=== PATIENT | female | born 1985 | race American Indian/Alaskan Native ===

== ENCOUNTER 2017-12-07 13:36 | Emergency (ER) | payer SELFPAY ==
--- NOTE | 2017-12-07 14:45 | Emergency Department Report ---
Chief Complaint: Urogenital-Female Stated Complaint: ABDOMINAL PAIN Time Seen by Provider: 12/07/17 14:39 - HPI History of Present Illness: 32-year-old female presents to the emergency department with a complaint of a two-week history of lower abdominal/pelvic discomfort with some radiation towards the back. She denies any fever, nausea, vomiting, dysuria but does have some vaginal discharge. She has a previous history of bacterial vaginosis. She says that the discharge more recently has become "bloody." When asked if she has taken anything for her discomfort she says "everything." She does not have a primary care physician. Her TABLET TECHNICIAN is Jyothi Toabr but she has not seen them regarding her symptoms. - ROS Review of Systems: Positive for pelvic pain, vaginal discharge, vaginal bleeding, back pain Negative for dysuria, fever, nausea, vomiting - Exam Vital Signs: Vital Signs 12/07/17 13:54 Temperature 99.4 F Pulse Rate 106 H Respiratory 18 Rate Blood Pressure 130/86 O2 Sat by Pulse 100 Oximetry Physical Exam: Heart and lungs sounds are normal and auscultation. Abdominal pain is not reproducible to palpation. She does not appear in any acute distress. MSE screening note: Focused history and physical exam performed. Due to findings the following was ordered: I have ordered a CBC, BMP, urinalysis, urine test, wet prep. Patient will need a pelvic examination. ED Disposition for MSE Condition: Stable Referrals: PRIMARY CARE, [Primary Care Provider] - 3-5 Days
[2017-12-07 15:43] LABS: HCG Qualitative,Urine Negative (Negative)
--- NOTE | 2017-12-07 15:43 | Emergency Department Report ---
ED Female HPI - General Chief complaint: Urogenital-Female Stated complaint: ABDOMINAL PAIN Time Seen by Provider: 12/07/17 14:39 Source: patient Mode of arrival: Ambulatory Limitations: No Limitations - History of Present Illness Initial comments: 32-year-old female past medical history herpes presents with 2 weeks of suprapubic pain and vaginal discharge and pelvic pain radiating to her back. Patient is awake alert and oriented 3. Fully lucid. Denies nausea or vomiting. Does state she has some dysuria. MD Complaint: vaginal discharge, pelvic pain Onset/Timin -: week(s) - Related Data Previous Rx's Medication Instructions Recorded Last Taken Type Doxycycline [Vibramycin CAP] 100 mg PO Q12HR #28 capsule 12/07/17 Unknown Rx Ibuprofen [Motrin] 800 mg PO Q8HR PRN #15 tablet 12/07/17 Unknown Rx Sulfamethoxazole/Trimethoprim 1 each PO BID #6 tablet 12/07/17 Unknown Rx [Bactrim DS TAB] Allergies Allergy/AdvReac Type Severity Reaction Status Date / Time No Known Allergies Allergy Unverified 12/07/17 13:58 ED Review of Systems ROS: Stated complaint: ABDOMINAL PAIN Other details as noted in HPI ED Past Medical Hx - Past Medical History Additional medical history: genital herpes - Surgical History Additional Surgical History: d&c - Social History Smoking Status: Current Every Day Smoker Substance Use Type: Alcohol - Medications Home Medications: Home Medications Medication Instructions Recorded Confirmed Last Taken Type Doxycycline [Vibramycin CAP] 100 mg PO Q12HR #28 capsule 12/07/17 Unknown Rx Ibuprofen [Motrin] 800 mg PO Q8HR PRN #15 tablet 12/07/17 Unknown Rx Sulfamethoxazole/Trimethoprim 1 each PO BID #6 tablet 12/07/17 Unknown Rx [Bactrim DS TAB] ED Physical Exam - General Limitations: No Limitations General appearance: alert, in no apparent distress - Head Head exam: Present: atraumatic, normocephalic - Eye Eye exam: Present: normal appearance - ENT ENT exam: Present: mucous membranes moist - Neck Neck exam: Present: normal inspection - Respiratory Respiratory exam: Present: normal lung sounds bilaterally. Absent: respiratory distress - Cardiovascular Cardiovascular Exam: Present: regular rate, normal rhythm. Absent: systolic murmur, diastolic murmur, rubs, gallop - GI/Abdominal GI/Abdominal exam: Present: soft (abdomen is soft nontender nondistended 4 quadrants, slight suprapubic tenderness), normal bowel sounds - External exam: Present: normal external exam Speculum exam: Present: vaginal discharge (whitish yellowish vaginal discharge) , cervical discharge Bi-manual exam: Present: cervical motion tendernes - Extremities Exam Extremities exam: Present: normal inspection - Back Exam Back exam: Present: normal inspection - Neurological Exam Neurological exam: Present: alert, oriented X3, CN II-XII intact, normal gait - Psychiatric Psychiatric exam: Present: normal affect, normal mood - Skin Skin exam: Present: warm, dry, intact, normal color. Absent: rash ED Course Vital Signs 12/07/17 12/07/17 13:54 16:31 Temperature 99.4 F Pulse Rate 106 H Respiratory 18 16 Rate Blood Pressure 130/86 O2 Sat by Pulse 100 Oximetry ED Medical Decision Making - Lab Data Result diagrams: 12/07/17 15:49 12/07/17 15:49 - Medical Decision Making A/P: Urethritis/cervicitis, UTI, possible pid 1- patient empirically treated with azithromycin and ceftriaxone. Will add 14 day course of doxycyline as pt did have some cmt on exam 2- GC cultures sent, urine culture sent. 3 day course of bactrim to cover for UTI 3- patient given follow-up with primary care/RENTAL REPRESENTATIVE. Advised patient to return to the ED for any fevers chills nausea vomiting purulent vaginal discharge. I advised pt to avoid significant sunlight exposure to mitigate any dermatological side effects of doxy 4- wet prep shows no yeast, trich or bv Critical care attestation.: If time is entered above; I have spent that time in minutes in the direct care of this critically ill patient, excluding procedure time. ED Disposition Clinical Impression: Vaginal discharge, Pelvic pain Disposition: DC-01 TO HOME OR SELFCARE Is pt being admited?: No Does the pt Need Aspirin: No Condition: Stable Instructions: Doxycycline (By mouth), Pelvic Inflammatory Disease (ED), Urinary Tract Infection in Women (ED) Prescriptions: Doxycycline [Vibramycin CAP] 100 mg PO Q12HR #28 capsule Ibuprofen [Motrin] 800 mg PO Q8HR PRN #15 tablet PRN Reason: Pain Sulfamethoxazole/Trimethoprim [Bactrim DS TAB] 1 each PO BID #6 tablet Referrals: [facility] [Provider Group] - 3-5 Days Forms: Work/School Release Form(ED) Time of Disposition: 16:34
[2017-12-07 15:47] LABS: Bacteria,Urine 1+ /HPF (Negative); Bilirubin,Urine NEG (Negative); Blood,Urine LG (Negative); Color,Urine Yellow (Yellow); Mucus,Urine FEW /HPF
[2017-12-07 15:53] LABS: RBC,Urine > 182.0 /HPF (0.0-6.0)
[2017-12-07 15:59] LABS: Basophils % (Auto) 0.2 % (0.0-1.8); Hemoglobin 11.8 gm/dl (10.1-14.3); Lymphocytes % (Auto) 9.5 % (13.4-35.0); Mean Corpuscular HGB Conc 34 % (30-34); Mean Corpuscular Hemoglobin 30 pg (28-32); Mean Corpuscular Volume 89 fl (79-97); Monocytes # (Auto) 0.7 K/mm3 (0.0-0.8); Monocytes % (Auto) 6.9 % (0.0-7.3); Platelet Count 248 K/mm3 (140-440); Red Blood Count 3.92 M/mm3 (3.65-5.03); Red Cell Distribution Width 13.8 % (13.2-15.2)
[2017-12-07] MEDS ORDERED: XYLOCAINE 1% MPF 5 mL INFILTRATI ONE (16:11)
[2017-12-07] MEDS ORDERED: ZITHROMAX PO ONE (16:11)
[2017-12-07] MEDS ORDERED: ROCEPHIN IM ONE (16:11)
[2017-12-07 16:12] LABS: BUN/Creatinine Ratio 13; Blood Urea Nitrogen 8 mg/dL (7-17); Calcium 8.7 mg/dL (8.4-10.2); Hemolysis Index 4
[2017-12-07] MEDS ORDERED: MOTRIN PO ONE (16:28)
[2017-12-07 16:49] VITALS: BP 132/90
== END 2017-12-07 16:50 | disposition home or self-care (01) ==
LOC: ED 13:36
DX: N89.8 Other specified noninflammatory disorders of vagina (principal); R10.2 Pelvic and perineal pain; F17.200 Nicotine dependence, unspecified, uncomplicated
CPT/HCPCS: 36415; 80048; 81001; 81025; 85025; 87210; 87591; 96372; 99284; J0696

== ENCOUNTER 2019-02-08 19:46 | Emergency (ER) | payer OTHER ==
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
[2019-02-09] MEDS ORDERED: IBUPROFEN PO ONE (00:44)
[2019-02-09 00:56] LABS: Bilirubin,Urine Negative (Negative); Blood,Urine Negative (Negative); Color,Urine Yellow (Yellow)
[2019-02-09 00:57] LABS: Protein,Urine <15 mg/dL mg/dL (Negative)
[2019-02-09 00:59] LABS: HCG Qualitative,Urine Negative (Negative)
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
[2019-02-09 03:39] VITALS: BP 120/70
== END 2019-02-09 02:10 | disposition home or self-care (01) ==
LOC: ED 19:46
DX: S00.83XA Contusion of other part of head, initial encounter (principal); F17.200 Nicotine dependence, unspecified, uncomplicated; Z79.899 Other long term (current) drug therapy; Y04.8XXA Assault by other bodily force, initial encounter; Y93.89 Activity, other specified; Y92.89 Other specified places as the place of occurrence of the external cause; Y99.8 Other external cause status
CPT/HCPCS: 70150; 70480; 70486; 81001; 81025

== ENCOUNTER 2019-02-15 20:38 | Inpatient (IN) | payer OTHER ==
--- NOTE | 2019-02-15 21:00 | Emergency Department Report ---
Blank Doc - Documentation Documentation: This is a 33-year-old female that presents with abdominal pain with fever. This initial assessment/diagnostic orders/clinical plan/treatment(s) is/are subject to change based on patient's health status, clinical progression and re- assessment by fellow clinical providers in the ED. Further treatment and workup at subsequent clinical providers discretion. Patient/guardians urged not to elope from the ED as their condition may be serious if not clinically assessed and managed. Initial orders include: 1- Patient sent to MAIN ED for further evaluation and treatment 2- code sepsis initiated 3- labs
[2019-02-15] MEDS ORDERED: TYLENOL PO STA (21:01)
[2019-02-15] MEDS ORDERED: NACL 0.9% 500 ML 500 ML IV ONE (21:01)
[2019-02-15] MEDS ORDERED: TYLENOL ONE (21:09)
[2019-02-15] MEDS ORDERED: NACL 0.9% 1000 ML IV ONE (21:12)
[2019-02-15 21:41] LABS: Hematocrit 34.4 % (30.3-42.9); Hemoglobin 11.7 gm/dl (10.1-14.3); Mean Corpuscular HGB Conc 34 % (30-34); Mean Corpuscular Volume 92 fl (79-97); Platelet Count 258 K/mm3 (140-440); Red Blood Count 3.76 M/mm3 (3.65-5.03); Red Cell Distribution Width 13.9 % (13.2-15.2)
[2019-02-15] MEDS ORDERED: MORPHINE IV ONE (21:47)
[2019-02-15] MEDS ORDERED: ZOFRAN IV ONE (21:47)
[2019-02-15 22:04] LABS: INR 1.19 (0.87-1.13)
[2019-02-15] MEDS ORDERED: MORPHINE ONE (22:21)
[2019-02-15] MEDS ORDERED: ZOFRAN ONE (22:21)
[2019-02-15 22:29] LABS: Basophils % (Manual) 0 % (0.0-1.8); Eosinophils % (Manual) 0 % (0.0-4.3); Total Cells Counted 100
[2019-02-15 22:30] LABS: RBC Morphology Normal
[2019-02-15 22:51] LABS: Mucus,Urine 1+ /HPF
[2019-02-15 22:56] LABS: Color,Urine Brown (Yellow)
[2019-02-15 22:57] LABS: Bilirubin,Urine Negative (Negative); Blood,Urine Trace (Negative)
--- NOTE | 2019-02-15 23:03 | Emergency Department Report ---
ED Abdominal Pain HPI - General Chief Complaint: Abdominal Pain Stated Complaint: ABDOMINAL PAIN ,FEVER Time Seen by Provider: 02/15/19 21:01 Source: patient Mode of arrival: Ambulatory Limitations: No Limitations - History of Present Illness Initial Comments: Ms. Blackwell is a healthy 33-year-old female presents with periumbilical pain since last night. 10/10 dull sore pain. She has subjective fever. Also has nausea vomiting. No previous history of abdominal surgery with the exception of D&C status post miscarriage. She has vaginal discharge. Previous history of gonorrhea infection and bacterial vaginosis. Also previous history of genital herpes. Pain is worse with palpation,. No radiation of the pain. Pain is constant. MD Complaint: abdominal pain -: Gradual, days(s) (1) Location: periumbilical Radiation: none Migration to: no migration Severity: severe Severity scale (0 -10): 7 Quality: aching Consistency: constant Improves With: nothing Worsens With: other (palpation) Associated Symptoms: nausea, vomiting, fever - Related Data Previous Rx's Medication Instructions Recorded Last Taken Type DOXYCYCLINE Hyclate [Vibramycin 100 mg PO Q12HR #28 capsule 12/07/17 Unknown Rx CAP] Ibuprofen [Motrin] 800 mg PO Q8HR PRN #15 tablet 12/07/17 Unknown Rx Sulfamethoxazole/Trimethoprim 1 each PO BID #6 tablet 12/07/17 Unknown Rx [Bactrim DS TAB] Acetaminophen/Codeine [Tylenol 1 tab PO Q6H PRN #12 tab 02/09/19 Unknown Rx /Codeine # 3 tab] Allergies Allergy/AdvReac Type Severity Reaction Status Date / Time No Known Allergies Allergy Unverified 12/07/17 13:58 ED Review of Systems ROS: Stated complaint: ABDOMINAL PAIN ,FEVER Other details as noted in HPI Comment: All other systems reviewed and negative Constitutional: fever Gastrointestinal: abdominal pain, nausea, vomiting Genitourinary: discharge ED Past Medical Hx - Past Medical History Previous Medical History?: Yes Additional medical history: genital herpes - Surgical History Past Surgical History?: Yes Additional Surgical History: d&c - Social History Smoking Status: Never Smoker - Medications Home Medications: Home Medications Medication Instructions Recorded Confirmed Last Taken Type DOXYCYCLINE Hyclate [Vibramycin 100 mg PO Q12HR #28 capsule 12/07/17 Unknown Rx CAP] Ibuprofen [Motrin] 800 mg PO Q8HR PRN #15 tablet 12/07/17 Unknown Rx Sulfamethoxazole/Trimethoprim 1 each PO BID #6 tablet 12/07/17 Unknown Rx [Bactrim DS TAB] Acetaminophen/Codeine [Tylenol 1 tab PO Q6H PRN #12 tab 02/09/19 Unknown Rx /Codeine # 3 tab] ED Physical Exam - General Limitations: No Limitations General appearance: alert, in no apparent distress - Head Head exam: Present: atraumatic, normocephalic - Eye Eye exam: Present: normal appearance - ENT ENT exam: Present: mucous membranes moist - Neck Neck exam: Present: normal inspection, full ROM - Respiratory Respiratory exam: Present: normal lung sounds bilaterally. Absent: respiratory distress, wheezes, rales, rhonchi - Cardiovascular Cardiovascular Exam: Present: normal rhythm, tachycardia. Absent: systolic murmur, diastolic murmur, rubs, gallop - GI/Abdominal GI/Abdominal exam: Present: soft, tenderness (right lower quadrant left lower quadrant tenderness), guarding, normal bowel sounds. Absent: distended, rebound, rigid - External exam: Present: normal external exam. Absent: erythema, swelling Speculum exam: Present: vaginal discharge. Absent: cervical discharge, vaginal bleeding, foreign body, tissue, laceration Bi-manual exam: Absent: cervical motion tendernes, adnexal tenderness, adnexal mass, uterine enlargement, uterine tenderness - Extremities Exam Extremities exam: Present: normal inspection - Back Exam Back exam: Present: normal inspection - Neurological Exam Neurological exam: Present: alert, oriented X3 - Psychiatric Psychiatric exam: Present: normal affect, normal mood - Skin Skin exam: Present: warm, dry, intact, normal color. Absent: rash ED Course Vital Signs 02/15/19 02/15/19 20:56 21:05 Temperature 101.8 F H 101.8 F H Pulse Rate 118 H 116 H Respiratory 20 20 Rate Blood Pressure 109/70 109/70 O2 Sat by Pulse 98 97 Oximetry ED Medical Decision Making - Lab Data Result diagrams: 02/15/19 21:07 02/15/19 21:07 - Radiology Data Radiology results: report reviewed CT abdomen and pelvis: Proximal GI tract normal, terminal ileum normal, small volume pelvic free fluid, or productive organs unremarkable, distal small bowel since the pelvis abnormal fluid-filled appearance generalized mucosal enhancement, impression abnormal appearance of the distal small bowel suggesting enteritis without bowel obstruction - Medical Decision Making Francoise is a 33 yo female who presents with periumbilical pain, fever, leukocytosis, lower abdominal tenderness. She has pain when she walks. Differential Diagnosis Includes acute Appendicitis, PID, Enteritis. I Have High Suspicion of Appendicitis with Clinical Exam. However I Discussed CT findings with our radiologist publications writer. He was unable to visualize the appendix. However, terminal ileum was normal. However Distal Small Bowel Was Markedly Abnormal According to His Report. PID Not Evident on Clinical Exam. I did See Signs of Vaginitis. Admitted to hospital\ist service of Dr. Raphael. I have consulted our general surgeon publications writer Dr. Baugh. Antibiotics cipro flagyl initiated in the ED Critical care attestation.: If time is entered above; I have spent that time in minutes in the direct care of this critically ill patient, excluding procedure time. ED Disposition Clinical Impression: Abdominal pain, SIRS (systemic inflammatory response syndrome), Enteritis Disposition: 09 OP ADMIT IP TO THIS HOSP Is pt being admited?: Yes Does the pt Need Aspirin: No Referrals: MIREYA OLIVO MD [Primary Care Provider] - 3-5 Days
[2019-02-15 23:08] LABS: Alanine Aminotransferase 8 units/L (7-56); Albumin 3.9 g/dL (3.9-5); BUN/Creatinine Ratio 7; Blood Urea Nitrogen 5 mg/dL (7-17); Calcium 8.6 mg/dL (8.4-10.2); Hemolysis Index 2
[2019-02-16] MEDS ORDERED: LEVAQUIN 500MG/100ML 500 MG/100 ML BAG IV ONE ×2 (02:26→03:05)
[2019-02-16] MEDS ORDERED: FLAGYL 500 MG/100 ML 500 MG/100 ML BAG IV ONE ×2 (02:26→03:06)
[2019-02-16] MEDS ORDERED: MORPHINE IV ONE (02:27)
[2019-02-16] MEDS ORDERED: ZOFRAN IV PRN (02:49)
[2019-02-16] MEDS ORDERED: D5/0.45NS 1,000 ML IV SCH (03:00)
[2019-02-16] MEDS ORDERED: D5/0.45NS 1,000 ML IV ONE (03:05)
[2019-02-16] MEDS ORDERED: MORPHINE ONE (03:37)
[2019-02-16] MEDS ORDERED: FLAGYL 500 MG/100 ML 500 MG/100 ML BAG IV SCH ×2 (05:00→06:00)
[2019-02-16] MEDS: ZOSYN/NS 3.375GM/50ML 3.375 GM/50 ML BAG IV SCH ×2 (08:08→10:35)
--- NOTE | 2019-02-16 10:05 | XRay Report ---
CHEST 1 VIEW INDICATION: possible Sepsis. COMPARISON: None FINDINGS: Support devices: None. Heart: Within normal limits. Lungs/Pleura: No acute air space or interstitial disease. Additional findings: None. IMPRESSION: 1. No acute findings. Signer Name: Marshal Martin MD Signed: 02/15/2019 10:40 PM Workstation Name: [id number]
--- NOTE | 2019-02-16 10:05 | History and Physical Report ---
CHIEF COMPLAINT: Abdominal pain. Other complaint includes fever. HISTORY OF PRESENTING ILLNESS: The patient is a 33-year-old female who says she has been having periumbilical abdominal pain since last night. Pain was rated as 10/10, dull in character and associated with fever, nausea and vomiting. There is no history of diarrhea, no history of shortness of breath and the patient was seen in the Emergency Room, evaluated with CAT scan showing some swelling around the appendix but the appendix was not visualized. PAST MEDICAL HISTORY: Pertinent for genital herpes infection, gonorrhea and bacterial vaginosis. PAST SURGICAL HISTORY: Only pertinent for D and C following miscarriage. FAMILY HISTORY: Noncontributory. SOCIAL HISTORY: The patient drinks alcohol, smokes cigarette and does not use illicit drugs. MEDICATIONS: The patient is on ibuprofen 800 mg every 8 hours as needed for pain and Tylenol No. 3 one by mouth every 6 hours as needed for pain. ALLERGIES: There are no known drug allergies. REVIEW OF SYSTEMS: CONSTITUTIONAL: There is fever, but no chills, no diaphoresis. HEENT: There is no headache or sore throat. CARDIOVASCULAR SYSTEM: There is no chest pain or orthopnea. RESPIRATORY SYSTEM: There is no shortness of breath or cough. GASTROINTESTINAL SYSTEM: There is nausea and vomiting and abdominal pain, but no diarrhea, no constipation. NEUROLOGICAL SYSTEM: There is no numbness, no dizziness, no altered mental status. MUSCULOSKELETAL SYSTEM: There is no joint pain or swelling. DERMATOLOGICAL SYSTEM: There is no skin rash or itching. GENITOURINARY SYSTEM: There is no dysuria, hematuria or flank pain. Rest of system review is normal. PHYSICAL EXAMINATION: GENERAL: At the time of exam, the patient was found to be alert, oriented x 3 and not in acute distress. VITAL SIGNS: At the initial time of presentation show temperature of 101.8 degrees Fahrenheit, pulse of 118, respirations 20, blood pressure 109/70, O2 sat of 98% on room air. HEENT: Showed pupils to be equal, round, reactive to light and accommodating. Extraocular muscles are intact. NECK: Neck is supple with no JVD or carotid bruit. CARDIOVASCULAR SYSTEM: Showed normal first and second heart sounds, with no gallops or murmurs. RESPIRATORY SYSTEM: Showed good air entry on both sides of the lungs, with no abnormal breath sounds. GASTROINTESTINAL SYSTEM: Showed abdomen to be full, soft with tenderness in the periumbilical area, was in the infraumbilical area with no guarding and no rigidity and there is no rebound tenderness. There is no organomegaly elicited. Bowel sound is normal. NEUROLOGIC SYSTEM: Showed no focal deficit. MUSCULOSKELETAL SYSTEM: Showed no joint swelling or tenderness. DERMATOLOGICAL SYSTEM: Showed no skin rash. GENITOURINARY SYSTEM: Showed no costovertebral angle tenderness. PERTINENT LABORATORY AND IMAGING STUDIES: The patient had CT of the abdomen and pelvis with contrast, which is yet to be posted, but report from the Emergency Room physician showed that the appendix was not visualized and there was a lot of swelling around the appendix area. LABORATORY RESULTS: The patient has CBC done with elevated white count of 14,600, normal hemoglobin and normal hematocrit with CBC differential showing elevated segmented neutrophil count of 87%, and the patient's chemistry was unremarkable. Coagulation studies came back unremarkable. The patient's urinalysis was unremarkable. DIAGNOSES: 1. Abdominal pain. 2. Sepsis. 3. Vaginitis. PLAN OF CARE: 1. The patient will be admitted to medical/surgical hernandez. 2. The patient will continue surgical consult with the oncall surgeon requested by the Emergency Room physician. 3. The patient will be on IV D5 half normal running at 125 mL an hour, having received boluses of normal saline in the Emergency Room for treatment of sepsis. 4. The patient will be on IV Levaquin 750 mg daily and will be on IV Zosyn 3.375 g q.8 hours. 5. The patient will also be on IV metronidazole 500 mg q.8 hours. 6. The patient will be on Tylenol suppository 650 mg every 4 hours as needed for fever. 7. The patient will remain n.p.o. until seen by the surgeon. 8. The patient's DVT prophylaxis will be through sequential compressive device until evaluated by the surgeon. 9. The patient will be on IV morphine 2 mg every 3 hours as needed for pain and IV Zofran 4 mg every 8 hours for nausea and vomiting. JOB# [id number] OCN/NTS RIKKID
[2019-02-16] MEDS: LEVAQUIN 750MG/150ML 750 MG/150 ML BAG IV SCH ×2 (10:09→11:19)
--- NOTE | 2019-02-16 10:26 | Consultation ---
History of Present Illness Consult date: 02/16/19 Reason for consult: abdominal pain Chief complaint: abdominal pain - History of present illness History of present illness: 33 yo F presented to ER for evaluation of severe sharp, crampy lower abdominal p ain x 2 days. The pain started all of a sudden and gradually worsened. It is localized to the lower abdomen and radiates to b/l lower quadrants. She has had pain like this in the past with ovarian cysts. She states she ate at a restaurant known to her the day the pain started. Her significant other also ate there and is not having any symptoms. She c/o pain at the end of urination. Her last BM was 2-3 days ago and was normal. She is passing flatus. She had one episode of clear emesis yesterday and her nausea has now resolved. No cp, sob. She does have a hx of gonorrhea infection and bacterial vaginosis. Tm 101.8 in ER Past History Past Medical History: other (gonorrhea infection and bacterial vaginosis) Past Surgical History: Other (D&c) Social history: no significant social history Family history: no significant family history Medications and Allergies Allergies Allergy/AdvReac Type Severity Reaction Status Date / Time No Known Allergies Allergy Unverified 12/07/17 13:58 Home Medications Medication Instructions Recorded Confirmed Last Taken Type DOXYCYCLINE Hyclate [Vibramycin 100 mg PO Q12HR #28 capsule 12/07/17 Unknown Rx CAP] Ibuprofen [Motrin] 800 mg PO Q8HR PRN #15 tablet 12/07/17 Unknown Rx Sulfamethoxazole/Trimethoprim 1 each PO BID #6 tablet 12/07/17 Unknown Rx [Bactrim DS TAB] Acetaminophen/Codeine [Tylenol 1 tab PO Q6H PRN #12 tab 02/09/19 Unknown Rx /Codeine # 3 tab] Active Meds: Active Medications Acetaminophen (Tylenol) 650 mg PO Q4H PRN PRN Reason: Fever >101 Dextrose/Sodium Chloride (D5/0.45ns) 1,000 mls @ 125 mls/hr IV DIRECT MARTA Last Admin: 02/16/19 03:17 Dose: 125 mls/hr Documented by: Levofloxacin/Dextrose (Levaquin 750mg/150ml) 750 mg in 150 mls @ 100 mls/hr IV Q24HR MARTA; Protocol Piperacillin Sod/Tazobactam Sod (Zosyn/Ns 3.375gm/50ml) 3.375 gm in 50 mls @ 100 mls/hr IV Q8H MARTA; Protocol Metronidazole (Flagyl 500 Mg/100 Ml) 500 mg in 100 mls @ 100 mls/hr IV Q8H MARTA; Protocol Last Admin: 02/16/19 05:28 Dose: Not Given Documented by: Morphine Sulfate (Morphine) 2 mg IV Q3H PRN PRN Reason: Pain, Moderate (4-6) Ondansetron HCl (Zofran) 4 mg IV Q8H PRN PRN Reason: Nausea And Vomiting Review of Systems All systems: negative (10 PT ROS performed and negative except for that listed in HPI) Exam Vital Signs Temp Pulse Resp BP Pulse Ox 101.8 F H 118 H 20 109/70 98 02/15/19 20:56 02/15/19 20:56 02/15/19 20:56 02/15/19 20:56 02/15/19 20:56 Narrative exam: Gen: AAOx3. NAD ENT: no scleral icterus or conjunctival pallor CV: S1, S2+ Resp; even and unlabored Abd: soft, ND, mild TTP in suprapubic area, LLQ. no r/r/g Ext; no c/c/e Results - Labs 02/15/19 21:07 02/15/19 21:07 Abnormal lab results 02/15/19 02/15/19 02/15/19 Range/Units 21:07 21:07 21:07 WBC 14.6 H (4.5-11.0) K/mm3 Seg Neuts % (Manual) 87.0 H (40.0-70.0) % Lymphocytes % (Manual) 4.0 L (13.4-35.0) % Monocytes % (Manual) 9.0 H (0.0-7.3) % Seg Neutrophils # Man 12.7 H (1.8-7.7) K/mm3 Lymphocytes # (Manual) 0.6 L (1.2-5.4) K/mm3 Monocytes # (Manual) 1.3 H (0.0-0.8) K/mm3 INR (0.87-1.13) BUN 5 L (7-17) mg/dL Glucose 103 H (65-100) mg/dL Lipase 9 L (13-60) units/L U Epithel Cells (Auto) (0-13.0) /HPF 02/15/19 02/15/19 Range/Units 21:07 21:39 WBC (4.5-11.0) K/mm3 Seg Neuts % (Manual) (40.0-70.0) % Lymphocytes % (Manual) (13.4-35.0) % Monocytes % (Manual) (0.0-7.3) % Seg Neutrophils # Man (1.8-7.7) K/mm3 Lymphocytes # (Manual) (1.2-5.4) K/mm3 Monocytes # (Manual) (0.0-0.8) K/mm3 INR 1.19 H (0.87-1.13) BUN (7-17) mg/dL Glucose (65-100) mg/dL Lipase (13-60) units/L U Epithel Cells (Auto) 31.0 H (0-13.0) /HPF Diabetes panel 02/15/19 Range/Units 21:07 Sodium 137 (137-145) mmol/L Potassium 4.3 (3.6-5.0) mmol/L Chloride 99.9 (98-107) mmol/L Carbon Dioxide 24 (22-30) mmol/L BUN 5 L (7-17) mg/dL Creatinine 0.7 (0.7-1.2) mg/dL Glucose 103 H (65-100) mg/dL Calcium 8.6 (8.4-10.2) mg/dL AST 13 (5-40) units/L ALT 8 (7-56) units/L Alkaline Phosphatase 58 (35-129) units/L Total Protein 7.0 (6.3-8.2) g/dL Albumin 3.9 (3.9-5) g/dL Calcium panel 02/15/19 Range/Units 21:07 Calcium 8.6 (8.4-10.2) mg/dL Albumin 3.9 (3.9-5) g/dL Pituitary panel 02/15/19 Range/Units 21:07 Sodium 137 (137-145) mmol/L Potassium 4.3 (3.6-5.0) mmol/L Chloride 99.9 (98-107) mmol/L Carbon Dioxide 24 (22-30) mmol/L BUN 5 L (7-17) mg/dL Creatinine 0.7 (0.7-1.2) mg/dL Glucose 103 H (65-100) mg/dL Calcium 8.6 (8.4-10.2) mg/dL Adrenal panel 02/15/19 Range/Units 21:07 Sodium 137 (137-145) mmol/L Potassium 4.3 (3.6-5.0) mmol/L Chloride 99.9 (98-107) mmol/L Carbon Dioxide 24 (22-30) mmol/L BUN 5 L (7-17) mg/dL Creatinine 0.7 (0.7-1.2) mg/dL Glucose 103 H (65-100) mg/dL Calcium 8.6 (8.4-10.2) mg/dL Total Bilirubin 0.60 (0.1-1.2) mg/dL AST 13 (5-40) units/L ALT 8 (7-56) units/L Alkaline Phosphatase 58 (35-129) units/L Total Protein 7.0 (6.3-8.2) g/dL Albumin 3.9 (3.9-5) g/dL - Imaging CT scan - abdomen: report reviewed, image reviewed CT scan - pelvis: report reviewed, image reviewed Assessment and Plan 33 yo F with 1. abdominal pain 2. bilateral hydrosalpinx 3. SIRS Ct A/P reviewed with Dr. Rasmussen - bowel loops and appendix appear normal. Adnexa significant for bilateral hydrosalpinx Plan: 1. ok to start soft diet 2. prn PO pain control 3. VALVE TESTER consult 4. may need additional imaging such as pelvic ultrasound - will defer to VALVE TESTER No general surgical intervention. D/W Dr. Seymour. Thank you, please call with questions.
[2019-02-16] MEDS: MORPHINE IV PRN ×2 (10:30→15:19)
--- NOTE | 2019-02-16 11:45 | Progress Note ---
Assessment and Plan Assessment and plan: Patient is a 33 yo woman who presented to [facility] ED with severe abd pains, vaginal discharge. She was found to have a temperature of 101.8F with a WBC of 14.6. General surgery was consulted to evaluate the appendix. CT abd/pelvis results not available at the time of this note but was reviewed by the Surgeon, Dr. Baugh, who has asked me to place a consult for fire prevention chief for bilateral hydrosalpinx. Pelvic exam was done in the ED but I do not see any cultures or smears done. Patient does have a history of gonorrhea, BV and genital HSV. UA not indicative of UTI, pCXR negative. -SIRS w/o organ dysfunction but sepsis suspected but no source so far: will order pelvic u/s, IV abx delayed because no peripheral IV established -Hydrosalpinx: consulted hammer heater -Vaginal discharge, ?PID: hammer heater consulted,continue abx, add flagyl -Lost IV access: consult PICC nurse for midline History Interval history: Patient was seen and examined. Follow-up on current diagnosis of FEVERS. No overnight events reported to me. Patient denies any chest pain, shortness breath, nausea/vomiting or severe headaches. Imaging, nursing note, chart, labs and old chart reviewed. Discussed with patient. Hospitalist Physical - Physical exam Narrative exam: Gen: WDWN, NAD, Awake, Alert, Orientated HEENT: NCAT, EOMI, PERRL, OP Clear Neck: supple, no adenopathy, no thyromegaly, no JVD CVS/Heart: RRR, normal S1S2, pulses present bilaterally Chest/Lungs: CTA B, Symmetrical chest expansion, good air entry bilaterally GI/Abdomen: soft, NTND, good bowel sounds, no guarding or rebound /Bladder: +suprapubic tenderness, no CVA or paraspinal tenderness Extermity/Skin: no c/c/e, no obvious rash MSK: FROM x 4 Neuro: CN 2-12 grossly intact, no new focal deficits Psych: calm - Constitutional Vitals: Temp Pulse Resp BP Pulse Ox 100.5 F H 106 H 20 126/69 97 02/16/19 08:36 02/16/19 10:02 02/16/19 10:35 02/16/19 08:36 02/16/19 10:36 Results - Labs CBC & Chem 7: 02/15/19 21:07 02/15/19 21:07 Labs: Laboratory Last Values WBC 14.6 K/mm3 (4.5-11.0) H 02/15/19 21:07 RBC 3.76 M/mm3 (3.65-5.03) 02/15/19 21:07 Hgb 11.7 gm/dl (10.1-14.3) 02/15/19 21:07 Hct 34.4 % (30.3-42.9) 02/15/19 21:07 MCV 92 fl (79-97) 02/15/19 21:07 MCH 31 pg (28-32) 02/15/19 21:07 MCHC 34 % (30-34) 02/15/19 21:07 RDW 13.9 % (13.2-15.2) 02/15/19 21:07 Plt Count 258 K/mm3 (140-440) 02/15/19 21:07 Add Manual Diff Complete 02/15/19 21:07 Total Counted 100 02/15/19 21:07 Seg Neutrophils % Financial Analysis Manager 02/15/19 21:07 Seg Neuts % (Manual) 87.0 % (40.0-70.0) H 02/15/19 21:07 0 % 02/15/19 21:07 4.0 % (13.4-35.0) L 02/15/19 21:07 Reactive Lymphs % (Man) 0 % 02/15/19 21:07 9.0 % (0.0-7.3) H 02/15/19 21:07 0 % (0.0-4.3) 02/15/19 21:07 0 % (0.0-1.8) 02/15/19 21:07 0 % 02/15/19 21:07 0 % 02/15/19 21:07 0 % 02/15/19 21:07 0 % 02/15/19 21:07 Nucleated RBC % Not Reportable 02/15/19 21:07 Seg Neutrophils # Man 12.7 K/mm3 (1.8-7.7) H 02/15/19 21:07 Band Neutrophils # 0.0 K/mm3 02/15/19 21:07 0.6 K/mm3 (1.2-5.4) L 02/15/19 21:07 Abs React Lymphs (Man) 0.0 K/mm3 02/15/19 21:07 1.3 K/mm3 (0.0-0.8) H 02/15/19 21:07 0.0 K/mm3 (0.0-0.4) 02/15/19 21:07 0.0 K/mm3 (0.0-0.1) 02/15/19 21:07 0.0 K/mm3 02/15/19 21:07 0.0 K/mm3 02/15/19 21:07 0.0 K/mm3 02/15/19 21:07 Blast Cells # 0.0 K/mm3 02/15/19 21:07 WBC Morphology Not Reportable 02/15/19 21:07 Hypersegmented Neuts Not Reportable 02/15/19 21:07 Hyposegmented Neuts Not Reportable 02/15/19 21:07 Hypogranular Neuts Not Reportable 02/15/19 21:07 Not Reportable 02/15/19 21:07 Not Reportable 02/15/19 21:07 Not Reportable 02/15/19 21:07 Not Reportable 02/15/19 21:07 Not Reportable 02/15/19 21:07 Not Reportable 02/15/19 21:07 Not Reportable 02/15/19 21:07 Not Reportable 02/15/19 21:07 Plt Clumps, EDTA Not Reportable 02/15/19 21:07 Not Reportable 02/15/19 21:07 Not Reportable 02/15/19 21:07 Not Reportable 02/15/19 21:07 Plt Morphology Comment Not Reportable 02/15/19 21:07 RBC Morphology Normal 02/15/19 21:07 Dimorphic RBCs Not Reportable 02/15/19 21:07 Not Reportable 02/15/19 21:07 Not Reportable 02/15/19 21:07 Not Reportable 02/15/19 21:07 Not Reportable 02/15/19 21:07 Not Reportable 02/15/19 21:07 Not Reportable 02/15/19 21:07 Not Reportable 02/15/19 21:07 Not Reportable 02/15/19 21:07 Not Reportable 02/15/19 21:07 Not Reportable 02/15/19 21:07 Not Reportable 02/15/19 21:07 Not Reportable 02/15/19 21:07 Not Reportable 02/15/19 21:07 Not Reportable 02/15/19 21:07 Not Reportable 02/15/19 21:07 Not Reportable 02/15/19 21:07 Not Reportable 02/15/19 21:07 Not Reportable 02/15/19 21:07 Not Reportable 02/15/19 21:07 Acanthocytes (Spur) Not Reportable 02/15/19 21:07 Rouleaux Not Reportable 02/15/19 21:07 Not Reportable 02/15/19 21:07 Not Reportable 02/15/19 21:07 Not Reportable 02/15/19 21:07 Not Reportable 02/15/19 21:07 Hem Pathologist Commnt No 02/15/19 21:07 PT 14.8 Sec. (12.2-14.9) 02/15/19 21:07 INR 1.19 (0.87-1.13) H 02/15/19 21:07 VBG pH 7.379 (7.320-7.420) 02/15/19 21:07 Sodium 137 mmol/L (137-145) 02/15/19 21:07 Potassium 4.3 mmol/L (3.6-5.0) 02/15/19 21:07 Chloride 99.9 mmol/L (98-107) 02/15/19 21:07 Carbon Dioxide 24 mmol/L (22-30) 02/15/19 21:07 17 mmol/L 02/15/19 21:07 BUN 5 mg/dL (7-17) L 02/15/19 21:07 0.7 mg/dL (0.7-1.2) 02/15/19 21:07 Estimated GFR > 60 ml/min 02/15/19 21:07 7 % 02/15/19 21:07 Glucose 103 mg/dL (65-100) H 02/15/19 21:07 Lactic Acid 0.80 mmol/L (0.7-2.0) 02/16/19 00:24 Calcium 8.6 mg/dL (8.4-10.2) 02/15/19 21:07 0.60 mg/dL (0.1-1.2) 02/15/19 21:07 AST 13 units/L (5-40) 02/15/19 21:07 ALT 8 units/L (7-56) 02/15/19 21:07 58 units/L (35-129) 02/15/19 21:07 7.0 g/dL (6.3-8.2) 02/15/19 21:07 3.9 g/dL (3.9-5) 02/15/19 21:07 1.3 % 02/15/19 21:07 9 units/L (13-60) L 02/15/19 21:07 HCG, Qual Negative (Negative) 02/15/19 21:07 Brown (Yellow) 02/15/19 21:39 Hazy (Clear) 02/15/19 21:39 6.0 (5.0-7.0) 02/15/19 21:39 Ur Specific Ucon 1.015 (1.003-1.030) 02/15/19 21:39 30 mg/dl mg/dL (Negative) 02/15/19 21:39 Negative mg/dL (Negative) 02/15/19 21:39 Negative mg/dL (Negative) 02/15/19 21:39 Trace (Negative) 02/15/19 21:39 Negative (Negative) 02/15/19 21:39 Ur Reducing Substances Not Reportable 02/15/19 21:39 Negative (Negative) 02/15/19 21:39 Not Reportable 02/15/19 21:39 1.0 mg/dL (<2.0) 02/15/19 21:39 Ur Leukocyte Esterase Negative (Negative) 02/15/19 21:39 5.0 /HPF (0.0-6.0) 02/15/19 21:39 17.0 /HPF (0.0-6.0) 02/15/19 21:39 U Epithel Cells (Auto) 31.0 /HPF (0-13.0) H 02/15/19 21:39 2+ /HPF 02/15/19 21:39 1+ /HPF 02/15/19 21:39 1+ /HPF 02/15/19 21:39 Active Medications - Current Medications Current Medications: Generic Name Dose Route Start Last Admin Trade Name Freq PRN Reason Stop Dose Admin Acetaminophen 650 mg 02/16/19 02:51 Tylenol PO Q4H PRN Fever >101 Levofloxacin/Dextrose 750 mg in 150 mls @ 100 mls/hr 02/16/19 10:00 02/16/19 11:19 Levaquin 750mg/150ml IV 100 mls/hr Q24HR MARTA Administration Protocol Piperacillin Sod/Tazobactam Sod 3.375 gm in 50 mls @ 100 mls/hr 02/16/19 08:00 02/16/19 10:35 Zosyn/Ns 3.375gm/50ml IV 100 mls/hr Q8H MARTA Administration Protocol Morphine Sulfate 2 mg 02/16/19 02:49 Morphine IV Q3H PRN Pain, Moderate (4-6) Ondansetron HCl 4 mg 02/16/19 02:49 Zofran IV Q8H PRN Nausea And Vomiting
--- NOTE | 2019-02-16 12:29 | Consultation ---
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 History: chlamydia, gonorrhea, herpes Family/Genetic History: none Social history: single, lives with family (boyfriend) Medications and Allergies Allergies Allergy/AdvReac Type Severity Reaction Status Date / Time No Known Allergies Allergy Unverified 12/07/17 13:58 Home Medications Medication Instructions Recorded Confirmed Last Taken Type DOXYCYCLINE Hyclate [Vibramycin 100 mg PO Q12HR #28 capsule 12/07/17 Unknown Rx CAP] Ibuprofen [Motrin] 800 mg PO Q8HR PRN #15 tablet 12/07/17 Unknown Rx Sulfamethoxazole/Trimethoprim 1 each PO BID #6 tablet 12/07/17 Unknown Rx [Bactrim DS TAB] Acetaminophen/Codeine [Tylenol 1 tab PO Q6H PRN #12 tab 02/09/19 Unknown Rx /Codeine # 3 tab] Active Meds: Active Medications Acetaminophen (Tylenol) 650 mg PO Q4H PRN PRN Reason: Fever >101 Levofloxacin/Dextrose (Levaquin 750mg/150ml) 750 mg in 150 mls @ 100 mls/hr IV Q24HR [facility]; Protocol Last Admin: 02/16/19 11:19 Dose: 100 mls/hr Documented by: Piperacillin Sod/Tazobactam Sod (Zosyn/Ns 3.375gm/50ml) 3.375 gm in 50 mls @ 100 mls/hr IV Q8H [facility]; Protocol Last Admin: 02/16/19 10:35 Dose: 100 mls/hr Documented by: Azithromycin 500 mg/ Sodium (Chloride) 250 mls @ 250 mls/hr IV Q24HR [facility]; Protocol Metronidazole (Flagyl) 500 mg PO Q8HR [facility]; Protocol Morphine Sulfate (Morphine) 2 mg IV Q3H PRN PRN Reason: Pain, Moderate (4-6) Ondansetron HCl (Zofran) 4 mg IV Q8H PRN PRN Reason: Nausea And Vomiting Review of Systems Constitutional: fever, chills Eyes: deferred Ears, nose, mouth and throat: deferred Breasts: deferred Gastrointestinal: abdominal pain, nausea, vomiting Genitourinary: pelvic pain Integumentary: deferred - Vital Signs Vital signs: Vital Signs Temp Pulse Resp BP Pulse Ox 101.8 F H 118 H 20 109/70 98 02/15/19 20:56 02/15/19 20:56 02/15/19 20:56 02/15/19 20:56 02/15/19 20:56 Temp Pulse Resp BP Pulse Ox 100.5 F H 106 H 20 126/69 97 02/16/19 08:36 02/16/19 10:02 02/16/19 10:35 02/16/19 08:36 02/16/19 10:36 - Physical Exam Breasts: Positive: deferred Cardiovascular: Regular rate, Normal S1, Normal S2 Lungs: Positive: Normal air movement Abdomen: Positive: normal appearance, soft, normal bowel sounds. Negative: distention, tenderness Genitourinary (Female): Positive: normal external genitalia, normal perenium Vulva: both: normal Vagina: Positive: normal moisture. Negative: discharge Cervix: Positive: other (CMT predominately right side). Negative: lesion, discharge Uterus: Positive: normal size, normal contour, tender Adnexa: both: normal Anus/Rectum: Positive: normal perianal skin, heme negative. Negative: rectal mass, hemorrhoids Extremities: Positive: normal Deep Tendon Reflex Grade: Normal +2 Results Result Diagrams: 02/15/19 21:07 02/15/19 21:07 Abnormal lab results 02/15/19 02/15/19 02/15/19 Range/Units 21:07 21:07 21:07 WBC 14.6 H (4.5-11.0) K/mm3 Seg Neuts % (Manual) 87.0 H (40.0-70.0) % Lymphocytes % (Manual) 4.0 L (13.4-35.0) % Monocytes % (Manual) 9.0 H (0.0-7.3) % Seg Neutrophils # Man 12.7 H (1.8-7.7) K/mm3 Lymphocytes # (Manual) 0.6 L (1.2-5.4) K/mm3 Monocytes # (Manual) 1.3 H (0.0-0.8) K/mm3 INR (0.87-1.13) BUN 5 L (7-17) mg/dL Glucose 103 H (65-100) mg/dL Lipase 9 L (13-60) units/L U Epithel Cells (Auto) (0-13.0) /HPF 02/15/19 02/15/19 Range/Units 21:07 21:39 WBC (4.5-11.0) K/mm3 Seg Neuts % (Manual) (40.0-70.0) % Lymphocytes % (Manual) (13.4-35.0) % Monocytes % (Manual) (0.0-7.3) % Seg Neutrophils # Man (1.8-7.7) K/mm3 Lymphocytes # (Manual) (1.2-5.4) K/mm3 Monocytes # (Manual) (0.0-0.8) K/mm3 INR 1.19 H (0.87-1.13) BUN (7-17) mg/dL Glucose (65-100) mg/dL Lipase (13-60) units/L U Epithel Cells (Auto) 31.0 H (0-13.0) /HPF All other labs normal. Ultrasound: pending CT scan - pelvis: report reviewed Chest x-ray: report reviewed Assessment and Plan - Patient Problems (1) Hydrosalpinx Onset Date: ~02/16/19 Current Visit: Yes Status: Acute Plan to address problem: Positive CMT on exam. Pelvic US pending. Continue ABX therapy. Will consult w/ Dr. Petty. Thank you for consulting. Will continue to follow. (2) Pelvic inflammatory disease (PID) Onset Date: ~02/16/19 Current Visit: Yes Status: Acute Plan to address problem: Confirmed with CMT. Continue ABX. Will obtain urine culture for G/C. Thank you for the consult. Will f/u as needed. <BELIA PETTY - Last Filed: 02/16/19 15:25> History of Present Illness Reason for consult: other Medications and Allergies Active Meds: Active Medications Acetaminophen (Tylenol) 650 mg PO Q4H PRN PRN Reason: Fever >101 Levofloxacin/Dextrose (Levaquin 750mg/150ml) 750 mg in 150 mls @ 100 mls/hr IV Q24HR [facility]; Protocol Last Admin: 02/16/19 11:19 Dose: 100 mls/hr Documented by: Piperacillin Sod/Tazobactam Sod (Zosyn/Ns 3.375gm/50ml) 3.375 gm in 50 mls @ 100 mls/hr IV Q8H [facility]; Protocol Last Admin: 02/16/19 10:35 Dose: 100 mls/hr Documented by: Azithromycin 500 mg/ Sodium (Chloride) 250 mls @ 250 mls/hr IV Q24HR [facility]; Protocol Metronidazole (Flagyl) 500 mg PO Q8HR [facility]; Protocol Morphine Sulfate (Morphine) 2 mg IV Q3H PRN PRN Reason: Pain, Moderate (4-6) Ondansetron HCl (Zofran) 4 mg IV Q8H PRN PRN Reason: Nausea And Vomiting - Vital Signs Vital signs: Vital Signs Temp Pulse Resp BP Pulse Ox 101.8 F H 118 H 20 109/70 98 02/15/19 20:56 02/15/19 20:56 02/15/19 20:56 02/15/19 20:56 02/15/19 20:56 Temp Pulse Resp BP Pulse Ox 98.1 F 104 H 18 106/60 100 02/16/19 14:22 02/16/19 14:22 02/16/19 14:22 02/16/19 14:22 02/16/19 14:22 Results Result Diagrams: 02/15/19 21:07 02/15/19 21:07 Abnormal lab results 02/15/19 02/15/19 02/15/19 Range/Units 21:07 21:07 21:07 WBC 14.6 H (4.5-11.0) K/mm3 Seg Neuts % (Manual) 87.0 H (40.0-70.0) % Lymphocytes % (Manual) 4.0 L (13.4-35.0) % Monocytes % (Manual) 9.0 H (0.0-7.3) % Seg Neutrophils # Man 12.7 H (1.8-7.7) K/mm3 Lymphocytes # (Manual) 0.6 L (1.2-5.4) K/mm3 Monocytes # (Manual) 1.3 H (0.0-0.8) K/mm3 INR (0.87-1.13) BUN 5 L (7-17) mg/dL Glucose 103 H (65-100) mg/dL Lipase 9 L (13-60) units/L U Epithel Cells (Auto) (0-13.0) /HPF 02/15/19 02/15/19 Range/Units 21:07 21:39 WBC (4.5-11.0) K/mm3 Seg Neuts % (Manual) (40.0-70.0) % Lymphocytes % (Manual) (13.4-35.0) % Monocytes % (Manual) (0.0-7.3) % Seg Neutrophils # Man (1.8-7.7) K/mm3 Lymphocytes # (Manual) (1.2-5.4) K/mm3 Monocytes # (Manual) (0.0-0.8) K/mm3 INR 1.19 H (0.87-1.13) BUN (7-17) mg/dL Glucose (65-100) mg/dL Lipase (13-60) units/L U Epithel Cells (Auto) 31.0 H (0-13.0) /HPF All other labs normal. Assessment and Plan LMP 02/04/2019, presents with pelvic pain similar to what she had last year when she was diagnosed with PID. Pain started 02/14/2019 and has become progressively worse. Pain was associated with one episode of vomiting and she noted a vaginal discharge last pm during the pelvic exam. Still complains of pelvic pain, however she has not asked for pain medication. She states she was told she had ovarian cysts several years ago in [place]. Dr. Rasmussen states (B) hydrosalpinges(no CT scan report available at this time) Recommend ID consultation to guide Antibx regiment for PID. - Patient Problems (1) Pelvic inflammatory disease (PID) Onset Date: ~02/16/19 Current Visit: Yes Status: Acute (2) SIRS (systemic inflammatory response syndrome) Current Visit: Yes Status: Acute
[2019-02-16] MEDS: FLAGYL PO SCH ×2 (15:25→21:19)
[2019-02-16] MEDS: ZITHROMAX 500 MG in NACL 0.9% 250ML 250 ML IV SCH (15:25)
[2019-02-16] MEDS: TYLENOL PO PRN (21:20)
[2019-02-17] MEDS: TYLENOL PO PRN ×2 (04:50→22:45)
[2019-02-17] MEDS: FLAGYL PO SCH (06:34)
[2019-02-17] MEDS ORDERED: ZOSYN/NS 3.375GM/50ML 3.375 GM/50 ML BAG IV SCH (08:00)
[2019-02-17] MEDS: LEVAQUIN 750MG/150ML 750 MG/150 ML BAG IV SCH (09:37)
[2019-02-17] MEDS: ZITHROMAX 500 MG in NACL 0.9% 250ML 250 ML IV SCH (09:46)
--- NOTE | 2019-02-17 11:55 | Consultation ---
History of Present Illness - Reason for Consult Consult date: 02/17/19 PID, abx management Requesting physician: BELIA TAYLOR - History of Present Illness The patient is a 33-year-old female who presented to the emergency room with lower abdominal pain. She has a previous history of PID. Symptoms were going on for about 2 days prior to admission. She also was found to have a fever now with vaginal discharge. She has a previous history of STDs: Gonorrhea and bacterial vaginosis. Per MODEL [employer]KER [employer]AR[employer] eval, she was noted to have cervical motion tenderness. Pelvic ultrasound, transvaginal ultrasound were done and are pending. Preliminary report on abdominal pelvis CT reported bilateral hydrosalpinx. Due to concerns for PID, infectious diseases was consulted for an tibiotic recommendations. Continues to have fevers here. Had 2 loose stools today, none prior to admission. Review of Systems: General: + fevers, no chills or rigors HEENT: no new visual disturbance Respiratory: No cough, sputum, hemoptysis or shortness of breath Cardiovascular: No chest pain, syncope Gastrointestinal: No nausea, vomiting. 2 loose stools today. Genitourinary: No dysuria or hematuria Musculoskeletal: No new or worsening neck pain or back pain Neurologic: No headaches, seizures Hematologic: No easy bruising or bleeding Endocrine: No night sweats or acute weight loss Skin: negative for rash, jaundice Psychiatric: No suicidal or homicidal ideation Past History Past Medical History: other (gonorrhea infection and bacterial vaginosis) Past Surgical History: Other (D&c) Social history: single, lives with family (boyfriend) Family history: no significant family history Medications and Allergies Allergies Allergy/AdvReac Type Severity Reaction Status Date / Time No Known Allergies Allergy Unverified 12/07/17 13:58 Home Medications Medication Instructions Recorded Confirmed Last Taken Type DOXYCYCLINE Hyclate [Vibramycin 100 mg PO Q12HR #28 capsule 12/07/17 02/16/19 Unknown Rx CAP] Ibuprofen [Motrin] 800 mg PO Q8HR PRN #15 tablet 12/07/17 02/16/19 Unknown Rx Sulfamethoxazole/Trimethoprim 1 each PO BID #6 tablet 12/07/17 02/16/19 Unknown Rx [Bactrim DS TAB] Acetaminophen/Codeine [Tylenol 1 tab PO Q6H PRN #12 tab 02/09/19 02/16/19 Unknown Rx /Codeine # 3 tab] Active Meds: Active Medications Acetaminophen (Tylenol) 650 mg PO Q4H PRN PRN Reason: Fever >101 Last Admin: 02/17/19 04:50 Dose: 650 mg Documented by: Levofloxacin/Dextrose (Levaquin 750mg/150ml) 750 mg in 150 mls @ 100 mls/hr IV Q24HR [facility]; Protocol Last Admin: 02/17/19 09:37 Dose: 100 mls/hr Documented by: Azithromycin 500 mg/ Sodium (Chloride) 250 mls @ 250 mls/hr IV Q24HR [facility]; Protocol Last Admin: 02/17/19 09:46 Dose: 250 mls/hr Documented by: Piperacillin Sod/Tazobactam Sod (Zosyn/Ns 3.375gm/50ml) 3.375 gm in 50 mls @ 100 mls/hr IV Q8H [facility]; Protocol Last Admin: 02/17/19 09:36 Dose: 100 mls/hr Documented by: Metronidazole (Flagyl) 500 mg PO Q8HR [facility]; Protocol Last Admin: 02/17/19 06:34 Dose: 500 mg Documented by: Morphine Sulfate (Morphine) 2 mg IV Q3H PRN PRN Reason: Pain, Moderate (4-6) Last Admin: 02/16/19 15:19 Dose: 2 mg Documented by: Ondansetron HCl (Zofran) 4 mg IV Q8H PRN PRN Reason: Nausea And Vomiting Physical Examination - Physical Exam Narrative exam: Physical Exam: Constitutional: Alert, cooperative. No acute distress Head, Ears, Nose: Normocephalic, atraumatic. External ears, nose normal Eyes: Conjunctivae/corneas clear. No icterus. No ptosis. Neck: Supple, no meningeal signs Oral: no thrush Cardiovascular: S1, S2 normal. Respiratory: Good air entry, clear to auscultation bilaterally GI: Soft, tenderness in lower abdomen; bowel sounds normal. No peritoneal signs Musculoskeletal: No pedal edema, no cyanosis. Skin: No rash or abscess Hem/Lymphatic: No palpable cervical or supraclavicular nodes. No lymphangitis Psych: Mood ok. Affect normal Neurological: Awake, alert, oriented. No gross abnormality - Constitutional Vitals: Vital Signs Temp Pulse Resp BP Pulse Ox 98.8 F 88 18 105/57 98 02/17/19 07:41 02/17/19 07:41 02/17/19 07:41 02/17/19 07:41 02/17/19 07:41 Temperature -Last 24 Hours Temperature 98.8 F Temperature 101.2 F Temperature 99.4 F Temperature 102.1 F Temperature 98.1 F Results - Labs CBC & Chem 7: 02/15/19 21:07 02/15/19 21:07 Labs: Abnormal lab results 02/16/19 Range/Units 13:36 POC Glucose 149 H (70-105) - Imaging and Cardiology Chest x-ray: report reviewed, image reviewed (no pneumonia) Assessment and Plan Cultures: 02/15/2019 blood culture: In process A/P: 83-year-old female with previous history of pelvic inflammatory disease, on [place], bacterial vaginosis admitted with: 1) Sepsis secondary to pelvic inflammatory disease with hydrosalpinx: ?pyosalpinx likely given fever and leucocytosis. Follow up imaging studies. 2) Previous h/o STDs: need to check HIV, RPR. Follow up GC NAAT testing. Recs: Follow-up GC NAAT testing Switched abx to Ceftriaxone, Flagyl and Doxycycline Follow up pelvic imaging May need drainage, MODEL [employer] following HIV, RPR (verbal consent obtained from patient) D/W Dr. Seymour. Gerry Tyson MD, FACP [facility] C: [phone] O: [phone] F: [phone]
--- NOTE | 2019-02-17 13:41 | Ultrasound Report ---
ULTRASOUND PELVIS COMPLETE ULTRASOUND TRANSVAGINAL HISTORY: Vaginal discharge, hydrosalpinx TECHNIQUE: Transabdominal and transvaginal ultrasound with color and spectral Doppler imaging. COMPARISON: CT abdomen pelvis with contrast dated 02/15/2019. FINDINGS: The uterus is anteverted. The uterus is normal size and contour measuring 6.7 x 3.4 x 4.3 cm. A 7 x 6 mm myometrial cyst is noted in the posterior wall. No uterine fibroid disease is detected. A 1.2 x 0 .7 cm nabothian cyst with debris is noted in the posterior cervix. A 5 mm nabothian cyst is noted in the anterior cervix. There are complex bilateral cystic adnexal lesions. These complex cystic lesions measure up to 5.0 x 4.0 x 5.2 cm on the right and 3.4 x 6.1 x 7.2 cm on the left. The cystic structures appear tubular on many of the images suggesting this represents hydrosalpinx and not ovarian cysts. Normal ovarian tis chari is difficult to identify. There is moderate debris within these tubular/cystic structures. Small pelvic fluid is noted in the cul-de-sac. IMPRESSION: Complex bilateral cystic/tubular lesions in both adnexa most consistent with bilateral hydrosalpinx o r pyosalpinx. This appears to correlate with the CT findings performed 2 days ago. Signer Name: Greg Rasmussen Jr, MD Signed: 02/17/2019 1:37 PM Workstation Name: [id number]
--- NOTE | 2019-02-17 14:38 | Progress Note ---
Assessment and Plan - Patient Problems (1) Hydrosalpinx Onset Date: ~02/16/19 Current Visit: Yes Status: Acute Plan to address problem: -pyosalpix was also in the ddx of sono today. Will consult IR about CT guided drainage. -cont antibx. Pt has been afebrile since 421 this am -ID has seen pt with thanks and made adjustments to antibx (2) Pelvic inflammatory disease (PID) Onset Date: ~02/16/19 Current Visit: Yes Status: Acute Plan to address problem: -pyosalpix was also in the ddx of sono today. Will consult IR about CT guided drainage. -cont antibx. Pt has been afebrile since 421 this am -ID has seen pt with thanks and made adjustments to antibx Subjective - Subjective Date of service: 02/17/19 Principal diagnosis: HD#2 PID Interval history: Pelvic sono reviewed and pt appears to have bilaterally hydroxalpinx or pyosalpix. I d/w treatment for TOA being conservative management with antibiotics and observation, consultation with interventional radiology for CT guided drainage and operative management with possible removal on one or both tubes and one or both ovaries pending findings during the diagnostic scope. Pt expressed understanding. She states she feels better and that her pain is improved since her admission and she admits to very little pain at this time. States with last episode of PID she did not get admitted to the hospital but was given po anitbx and sent home. Patient reports: appetite normal, voiding normally, pain well controlled, no dizzy ambulation Objective - Vital Signs Latest vital signs: Vital Signs Temp Pulse Pulse Resp BP Pulse Ox 02/17/19 07:41 98.8 F 88 18 105/57 98 02/17/19 04:22 101.2 F H 02/17/19 04:21 105 H 18 125/84 100 02/17/19 04:00 105 H 02/17/19 01:42 104 H 18 97 02/17/19 00:16 99.4 F 02/17/19 00:13 104 H 18 110/68 100 02/16/19 20:00 104 H 02/16/19 19:59 102.1 F H 02/16/19 19:58 115 H 18 116/65 100 02/16/19 15:19 20 Intake and Output 02/16/19 02/17/19 02/17/19 22:59 06:59 14:59 Intake Total 730 280 Balance 730 280 Intake: IV 250 Zithromax 500 mg In NaCl 250 0.9% 250Ml 250 ml @ 250 mls/hr IV Q24HR [facility] Rx#: [id number] Oral 480 280 Other: Total, Intake Amount 480 280 Voiding Method Toilet Toilet # Voids Void 1 - Exam Lungs: Present: Normal air movement Abdomen: Present: other (pt under covers and did not appear to want to be examined so was deferred) - Labs Labs: Abnormal lab results 02/16/19 Range/Units 13:36 POC Glucose 149 H (70-105)
--- NOTE | 2019-02-17 14:45 | Cat Scan Report ---
CT ABDOMEN AND PELVIS WITH CONTRAST HISTORY: Acute nausea and vomiting with generalized abdominal pain. COMPARISON: None. TECHNIQUE: CT images of the abdomen and pelvis were obtained following administration of intravenous contrast. All CT scans at this location are performed using CT dose reduction for ALARA by means of automated exposure control. CONTRAST: 100 ml of intravenous contrast administered. FINDINGS: Lungs/bones: Lung bases are clear. There is no acute osseous abnormality. Mild degenerative changes are present in the lower lumbar spine and the pelvis. Abdomen/pelvis: The liver, mildly distended gallbladder, spleen, pancreas, adrenals, kidneys, and pr oximal GI tract show no acute abnormality. Urinary bladder and reproductive organs are unremarkable. There is small volume pelvic free fluid. Th ere is colonic diverticulosis with no acute inflammatory change identified. The distal small bowel which extends into the pelvis is abnormal with fluid-filled appearance and gen eralized mucosal enhancement. No bowel obstruction identified. IMPRESSION: 1. Abnormal appearance of the distal small bowel suggesting enteritis. No bowel obstruction. Signer Name: Marshal Martin MD Signed: 02/16/2019 12:35 AM Workstation Name: [id number]
--- NOTE | 2019-02-17 15:35 | Event Note ---
Date: 02/17/19 Attempted to see patient today. Patient taking shower at time of visit. Her CT scans and ultrasound were reviewed. Patient clinically has pyosalpinx. We will tentatively schedule the patient for CT-guided aspiration versus drainage tomorrow.
[2019-02-17] MEDS: ROCEPHIN/NS 2 GM/100 ML 2 GM/100 ML BAG IV SCH (17:21)
[2019-02-17] MEDS: FLAGYL 500 MG/100 ML 500 MG/100 ML BAG IV SCH ×2 (17:22→22:46)
[2019-02-17] MEDS: DOXYCYCLINE HYCLATE 100 MG in NACL 0.9% 250ML 250 ML IV SCH ×2 (17:22→22:45)
--- NOTE | 2019-02-17 22:53 | Progress Note ---
Assessment and Plan Assessment and plan: Patient is a 33 yo woman who presented to [facility] ED with severe abd pains, vaginal discharge. She was found to have a temperature of 101.8F with a WBC of 14.6. General surgery was consulted to evaluate the appendix. CT abd/pelvis results not available at the time of this note but was reviewed by the Surgeon, Dr. Baugh, who has asked me to place a consult for powder room attendant for bilateral hydrosalpinx. Pelvic exam was done in the ED but I do not see any cultures or smears done. Patient does have a history of gonorrhea, BV and genital HSV. UA not indicative of UTI, pCXR negative. -Suspected sepsis due to PID with suspected abscess: CT drainage tomorrow, ID following, powder room attendant following -Hydrosalpinx: consulted impregnator helper -Vaginal discharge, ?PID: impregnator helper consulted,continue abx, add flagyl -Lost IV access: consult PICC nurse for midline History Interval history: Patient was seen and examined. Follow-up on current diagnosis of FEVERS. No overnight events reported to me. Patient denies any chest pain, shortness breath, nausea/vomiting or severe headaches. Imaging, nursing note, chart, labs and old chart reviewed. Discussed with patient. Hospitalist Physical - Physical exam Narrative exam: Gen: WDWN, NAD, Awake, Alert, Orientated HEENT: NCAT, EOMI, PERRL, OP Clear Neck: supple, no adenopathy, no thyromegaly, no JVD CVS/Heart: RRR, normal S1S2, pulses present bilaterally Chest/Lungs: CTA B, Symmetrical chest expansion, good air entry bilaterally GI/Abdomen: soft, NTND, good bowel sounds, no guarding or rebound /Bladder: +suprapubic tenderness, no CVA or paraspinal tenderness Extermity/Skin: no c/c/e, no obvious rash MSK: FROM x 4 Neuro: CN 2-12 grossly intact, no new focal deficits Psych: calm - Constitutional Vitals: Temp Pulse Resp BP Pulse Ox 102.9 F H 114 H 13 132/80 98 02/17/19 19:38 02/17/19 19:38 02/17/19 19:38 02/17/19 19:38 02/17/19 19:38 Results - Labs CBC & Chem 7: 02/15/19 21:07 08/12/19 21:07 Labs: Laboratory Last Values WBC 14.6 K/mm3 (4.5-11.0) H 02/15/19 21:07 RBC 3.76 M/mm3 (3.65-5.03) 02/15/19 21:07 Hgb 11.7 gm/dl (10.1-14.3) 02/15/19 21:07 Hct 34.4 % (30.3-42.9) 02/15/19 21:07 MCV 92 fl (79-97) 02/15/19 21:07 MCH 31 pg (28-32) 02/15/19 21:07 MCHC 34 % (30-34) 02/15/19 21:07 RDW 13.9 % (13.2-15.2) 02/15/19 21:07 Plt Count 258 K/mm3 (140-440) 02/15/19 21:07 Add Manual Diff Complete 02/15/19 21:07 Total Counted 100 02/15/19 21:07 Seg Neutrophils % Solar Manager 02/15/19 21:07 Seg Neuts % (Manual) 87.0 % (40.0-70.0) H 02/15/19 21:07 0 % 02/15/19 21:07 4.0 % (13.4-35.0) L 02/15/19 21:07 Reactive Lymphs % (Man) 0 % 02/15/19 21:07 9.0 % (0.0-7.3) H 02/15/19 21:07 0 % (0.0-4.3) 02/15/19 21:07 0 % (0.0-1.8) 02/15/19 21:07 0 % 02/15/19 21:07 0 % 02/15/19 21:07 0 % 02/15/19 21:07 0 % 02/15/19 21:07 Nucleated RBC % Not Reportable 02/15/19 21:07 Seg Neutrophils # Man 12.7 K/mm3 (1.8-7.7) H 02/15/19 21:07 Band Neutrophils # 0.0 K/mm3 02/15/19 21:07 0.6 K/mm3 (1.2-5.4) L 02/15/19 21:07 Abs React Lymphs (Man) 0.0 K/mm3 02/15/19 21:07 1.3 K/mm3 (0.0-0.8) H 02/15/19 21:07 0.0 K/mm3 (0.0-0.4) 02/15/19 21:07 0.0 K/mm3 (0.0-0.1) 02/15/19 21:07 0.0 K/mm3 02/15/19 21:07 0.0 K/mm3 02/15/19 21:07 0.0 K/mm3 02/15/19 21:07 Blast Cells # 0.0 K/mm3 02/15/19 21:07 WBC Morphology Not Reportable 02/15/19 21:07 Hypersegmented Neuts Not Reportable 02/15/19 21:07 Hyposegmented Neuts Not Reportable 02/15/19 21:07 Hypogranular Neuts Not Reportable 02/15/19 21:07 Not Reportable 02/15/19 21:07 Not Reportable 02/15/19 21:07 Not Reportable 02/15/19 21:07 Not Reportable 02/15/19 21:07 Not Reportable 02/15/19 21:07 Not Reportable 02/15/19 21:07 Not Reportable 02/15/19 21:07 Not Reportable 02/15/19 21:07 Plt Clumps, EDTA Not Reportable 02/15/19 21:07 Not Reportable 02/15/19 21:07 Not Reportable 02/15/19 21:07 Not Reportable 02/15/19 21:07 Plt Morphology Comment Not Reportable 02/15/19 21:07 RBC Morphology Normal 02/15/19 21:07 Dimorphic RBCs Not Reportable 02/15/19 21:07 Not Reportable 02/15/19 21:07 Not Reportable 02/15/19 21:07 Not Reportable 02/15/19 21:07 Not Reportable 02/15/19 21:07 Not Reportable 02/15/19 21:07 Not Reportable 02/15/19 21:07 Not Reportable 02/15/19 21:07 Not Reportable 02/15/19 21:07 Not Reportable 02/15/19 21:07 Not Reportable 02/15/19 21:07 Not Reportable 02/15/19 21:07 Not Reportable 02/15/19 21:07 Not Reportable 02/15/19 21:07 Not Reportable 02/15/19 21:07 Not Reportable 02/15/19 21:07 Not Reportable 02/15/19 21:07 Not Reportable 02/15/19 21:07 Not Reportable 02/15/19 21:07 Not Reportable 02/15/19 21:07 Acanthocytes (Spur) Not Reportable 02/15/19 21:07 Rouleaux Not Reportable 02/15/19 21:07 Not Reportable 02/15/19 21:07 Not Reportable 02/15/19 21:07 Not Reportable 02/15/19 21:07 Not Reportable 02/15/19 21:07 Hem Pathologist Commnt No 02/15/19 21:07 PT 14.8 Sec. (12.2-14.9) 02/15/19 21:07 INR 1.19 (0.87-1.13) H 02/15/19 21:07 VBG pH 7.379 (7.320-7.420) 02/15/19 21:07 Sodium 137 mmol/L (137-145) 02/15/19 21:07 Potassium 4.3 mmol/L (3.6-5.0) 02/15/19 21:07 Chloride 99.9 mmol/L (98-107) 02/15/19 21:07 Carbon Dioxide 24 mmol/L (22-30) 02/15/19 21:07 17 mmol/L 02/15/19 21:07 BUN 5 mg/dL (7-17) L 02/15/19 21:07 0.7 mg/dL (0.7-1.2) 02/15/19 21:07 Estimated GFR > 60 ml/min 02/15/19 21:07 7 % 02/15/19 21:07 Glucose 103 mg/dL (65-100) H 02/15/19 21:07 POC Glucose 149 (70-105) H 02/16/19 13:36 Lactic Acid 0.80 mmol/L (0.7-2.0) 02/16/19 00:24 Calcium 8.6 mg/dL (8.4-10.2) 02/15/19 21:07 0.60 mg/dL (0.1-1.2) 02/15/19 21:07 AST 13 units/L (5-40) 02/15/19 21:07 ALT 8 units/L (7-56) 02/15/19 21:07 58 units/L (35-129) 02/15/19 21:07 7.0 g/dL (6.3-8.2) 02/15/19 21:07 3.9 g/dL (3.9-5) 02/15/19 21:07 1.3 % 02/15/19 21:07 9 units/L (13-60) L 02/15/19 21:07 HCG, Qual Negative (Negative) 02/15/19 21:07 Brown (Yellow) 02/15/19 21:39 Hazy (Clear) 02/15/19 21:39 6.0 (5.0-7.0) 02/15/19 21:39 Ur Specific [place] 1.015 (1.003-1.030) 02/15/19 21:39 30 mg/dl mg/dL (Negative) 02/15/19 21:39 Negative mg/dL (Negative) 02/15/19 21:39 Negative mg/dL (Negative) 02/15/19 21:39 Trace (Negative) 02/15/19 21:39 Negative (Negative) 02/15/19 21:39 Ur Reducing Substances Not Reportable 02/15/19 21:39 Negative (Negative) 02/15/19 21:39 Not Reportable 02/15/19 21:39 1.0 mg/dL (<2.0) 02/15/19 21:39 Ur Leukocyte Esterase Negative (Negative) 02/15/19 21:39 5.0 /HPF (0.0-6.0) 02/15/19 21:39 17.0 /HPF (0.0-6.0) 02/15/19 21:39 U Epithel Cells (Auto) 31.0 /HPF (0-13.0) H 02/15/19 21:39 2+ /HPF 02/15/19 21:39 1+ /HPF 02/15/19 21:39 1+ /HPF 02/15/19 21:39 HIV 1&2 Antibody Rapid Non react (Non React) 02/17/19 14:57 Non react (Non React) 02/17/19 14:57 Active Medications - Current Medications Current Medications: Generic Name Dose Route Start Last Admin Trade Name Freq PRN Reason Stop Dose Admin Acetaminophen 650 mg 02/16/19 02:51 02/17/19 22:45 Tylenol PO 650 mg Q4H PRN Administration Fever >101 Doxycycline Hyclate 100 mg/ 250 mls @ 250 mls/hr 02/17/19 12:30 02/17/19 17:22 Sodium Chloride IV 250 mls/hr Q12HR MARTA Administration Protocol Ceftriaxone Sodium 2 gm in 100 mls @ 200 mls/hr 02/17/19 13:00 02/17/19 17:21 Rocephin/Ns 2 Gm/100 Ml IV 200 mls/hr Q24HR MARTA Administration Protocol Metronidazole 500 mg in 100 mls @ 100 mls/hr 02/17/19 14:00 02/17/19 22:46 Flagyl 500 Mg/100 Ml IV 100 mls/hr Q8HR MARTA Administration Protocol Morphine Sulfate 2 mg 02/16/19 02:49 02/16/19 15:19 Morphine IV 2 mg Q3H PRN Administration Pain, Moderate (4-6) Ondansetron HCl 4 mg 02/16/19 02:49 Zofran IV Q8H PRN Nausea And Vomiting
[2019-02-18] MEDS: MORPHINE IV PRN ×3 (00:56→22:02)
[2019-02-18 03:45] LABS: Hematocrit 33.7 % (30.3-42.9); Hemoglobin 11.3 gm/dl (10.1-14.3); Mean Corpuscular HGB Conc 34 % (30-34); Mean Corpuscular Volume 92 fl (79-97); Platelet Count 257 K/mm3 (140-440); Red Blood Count 3.66 M/mm3 (3.65-5.03); Red Cell Distribution Width 13.4 % (13.2-15.2)
[2019-02-18 04:10] LABS: BUN/Creatinine Ratio 3; Blood Urea Nitrogen 2 mg/dL (7-17); Calcium 8.1 mg/dL (8.4-10.2); Hemolysis Index 8
[2019-02-18] MEDS: FLAGYL 500 MG/100 ML 500 MG/100 ML BAG IV SCH ×3 (06:51→22:47)
--- NOTE | 2019-02-18 08:29 | Progress Note ---
Assessment and Plan - Patient Problems (1) Pelvic inflammatory disease (PID) Onset Date: ~02/16/19 Current Visit: Yes Status: Acute Plan to address problem: Currently on Flagyl Day 3, Doxcycline Day 2, and Rocephin Day 2. G/C cultures pending. (2) SIRS (systemic inflammatory response syndrome) Current Visit: Yes Status: Acute (3) Pyosalpinx Current Visit: Yes Status: Acute Plan to address problem: Pt scheduled for CT guided aspiration vs drainage today. Procedure discussed w/ patient. Dr. Solorio to review consent. Will f/u after procedure. Subjective Date of service: 02/18/19 Principal diagnosis: HD#3 PID possible pyosalpinx Interval history: Pt reports abd pain at this time and request medication. Reports vaginal spotting. Denies heavy bleeding or cramping. Objective - Exam Narrative Exam: Resting in bed w/ visitor at bedside. No apparent distress noted. Afebrile since 1900. - Constitutional Vitals: Vital Signs - 12hr 02/17/19 02/18/19 02/18/19 22:00 00:37 03:25 Temperature 99.4 F 100.2 F H Pulse Rate 93 H 93 H Pulse Rate [ 114 H From Monitor] Respiratory 18 18 16 Rate Blood Pressure 117/79 110/74 Blood Pressure [Right] O2 Sat by Pulse 98 99 100 Oximetry 02/18/19 02/18/19 03:31 04:00 Temperature 98.0 F 98.8 F Pulse Rate 69 105 H Pulse Rate [ From Monitor] Respiratory 16 16 Rate Blood Pressure 181/97 Blood Pressure 107/57 [Right] O2 Sat by Pulse 97 99 Oximetry General appearance: Present: no acute distress - Labs CBC & Chem 7: 02/18/19 03:18 02/18/19 03:18 Labs: Abnormal lab results 02/18/19 Range/Units 03:18 Sodium 136 L (137-145) mmol/L Potassium 3.5 L (3.6-5.0) mmol/L BUN 2 L (7-17) mg/dL Creatinine 0.6 L (0.7-1.2) mg/dL Glucose 114 H (65-100) mg/dL Calcium 8.1 L (8.4-10.2) mg/dL Medications & Allergies - Medications Allergies/Adverse Reactions: Allergies No Known Allergies Allergy (Unverified 12/07/17 13:58) Home Medications: Home Medications Medication Instructions Recorded Confirmed Last Taken Type DOXYCYCLINE Hyclate [Vibramycin 100 mg PO Q12HR #28 capsule 12/07/17 02/16/19 Unknown Rx CAP] Ibuprofen [Motrin] 800 mg PO Q8HR PRN #15 tablet 12/07/17 02/16/19 Unknown Rx Sulfamethoxazole/Trimethoprim 1 each PO BID #6 tablet 12/07/17 02/16/19 Unknown Rx [Bactrim DS TAB] Acetaminophen/Codeine [Tylenol 1 tab PO Q6H PRN #12 tab 02/09/19 02/16/19 Unknown Rx /Codeine # 3 tab] Active Medications: Generic Name Dose Route Start Last Admin Trade Name Jeremyq PRN Reason Stop Dose Admin Acetaminophen 650 mg 02/16/19 02:51 02/17/19 22:45 Tylenol PO 650 mg Q4H PRN Administration Fever >101 Doxycycline Hyclate 100 mg/ 250 mls @ 250 mls/hr 02/17/19 12:30 02/17/19 22:45 Sodium Chloride IV Not Given Q12HR MARTA Protocol Ceftriaxone Sodium 2 gm in 100 mls @ 200 mls/hr 02/17/19 13:00 02/17/19 17:21 Rocephin/Ns 2 Gm/100 Ml IV 200 mls/hr Q24HR MARTA Administration Protocol Metronidazole 500 mg in 100 mls @ 100 mls/hr 02/17/19 14:00 02/18/19 06:51 Flagyl 500 Mg/100 Ml IV 100 mls/hr Q8HR MARTA Administration Protocol Morphine Sulfate 2 mg 02/16/19 02:49 02/18/19 00:56 Morphine IV 2 mg Q3H PRN Administration Pain, Moderate (4-6) Ondansetron HCl 4 mg 02/16/19 02:49 Zofran IV Q8H PRN Nausea And Vomiting
--- NOTE | 2019-02-18 09:47 | Progress Note ---
Assessment and Plan Cultures: 02/15/2019 blood culture:no growth 02/15/2019 Urine: no growth A/P: 83-year-old female with previous history of pelvic inflammatory disease, on [place], bacterial vaginosis admitted with: 1) Sepsis secondary to pelvic inflammatory disease with hydrosalpinx: ?pyosalpinx likely given fever and leucocytosis. Transvaginal US shows complex bilateral cystic/tubular lesions in both adnexa most consistent with bilateral hydrosalpinx or pyosalpinx. CT guided aspiration of 7ml of fluid from left fallopian tube today. Appreciate sending specimen to the lab for cultures. 2) Previous h/o STDs: HIV nonreactive. RPR non reactive. Follow-up GC NAAT testing. Recs: Follow-up GC NAAT testing Continue Ceftriaxone 2 gms IV every 24 hours, D2 Continue Flagyl 500mg IV every 8 hours, D2 Doxycycline 100 MG IV every 12 hours, D2 Follow up OR culture [facility] M: [id number] O:[phone] Subjective Date of service: 02/18/19 Principal diagnosis: HD#3 PID possible pyosalpinx Interval history: Patient seen and examined. Reports generalized weakness. No acute pain. Low grade fever. Objective - Exam Narrative Exam: Constitutional: Alert, cooperative. No acute distress Head, Ears, Nose: Normocephalic, atraumatic. External ears, nose normal Eyes: Conjunctivae/corneas clear. No icterus. No ptosis. Neck: Supple, no meningeal signs Oral: no thrush Cardiovascular: S1, S2 normal. Respiratory: Good air entry, clear to auscultation bilaterally GI: Soft, tenderness in lower abdomen; bowel sounds normal. No peritoneal signs Musculoskeletal: No pedal edema, no cyanosis. Skin: No rash or abscess Hem/Lymphatic: No palpable cervical or supraclavicular nodes. No lymphangitis Psych: Mood ok. Affect normal Neurological: Awake, alert, oriented. No gross abnormality - Constitutional Vitals: Vital Signs Temp Pulse Resp BP Pulse Ox 98.9 F 92 H 16 117/82 97 02/18/19 09:03 02/18/19 09:03 02/18/19 09:03 02/18/19 09:03 02/18/19 09:03 Temperature -Last 24 Hours Temperature 98.9 F Temperature 98.8 F Temperature 98.0 F Temperature 100.2 F Temperature 99.4 F Temperature 102.9 F Temperature 99.8 F Temperature 98.7 F - Labs CBC & Chem 7: 02/18/19 03:18 02/18/19 03:18 Labs: Abnormal lab results 02/18/19 Range/Units 03:18 Sodium 136 L (137-145) mmol/L Potassium 3.5 L (3.6-5.0) mmol/L BUN 2 L (7-17) mg/dL Creatinine 0.6 L (0.7-1.2) mg/dL Glucose 114 H (65-100) mg/dL Calcium 8.1 L (8.4-10.2) mg/dL
[2019-02-18] MEDS ORDERED: VERSED IV ONE ×2 (10:20→11:00)
[2019-02-18] MEDS ORDERED: SUBLIMAZE ONE (10:20)
--- NOTE | 2019-02-18 10:54 | Post Operative Note ---
Date of procedure: 02/18/19 Pre-op diagnosis: Bilateral hydrosalpinx/pyosalpinx Post-op diagnosis: same Findings: 7 mL of serosanginous fluid removed from the left fallopian tube Right fallopian tube not amenable to percutaneous aspiration or drainage Procedure: CT guided aspiration of the left fallopian tube with fluid sent for culture Anesthesia: local (w/ conscious sedation) Surgeon: PEMA MARTINEZ Estimated blood loss: minimal Condition: stable Disposition: floor
[2019-02-18] MEDS ORDERED: SUBLIMAZE IV ONE (11:00)
[2019-02-18] MEDS: ROCEPHIN/NS 2 GM/100 ML 2 GM/100 ML BAG IV SCH (12:13)
[2019-02-18] MEDS: DOXYCYCLINE HYCLATE 100 MG in NACL 0.9% 250ML 250 ML IV SCH ×2 (14:36→21:32)
--- NOTE | 2019-02-18 17:04 | Cat Scan Report ---
EXAM: CT guided left fallopian tube aspiration CLINICAL INDICATION: History of bilateral hydrosalpinx, fever, leukocytosis, and concern for pyosalpinx DATE: 02/18/19 [employer]AL [employer]ULER OPERATOR: PEMA MARTINEZ MD MEDICATIONS: Conscious sedation using Versed and fentanyl was performed under guidance of radiologic nursing. Continuous cardiopulmonary monitoring was utilized. PROCEDURE: Following an explanation of the risks, benefits and alternatives; written informed consent was obtained. The patient was brought to the CT suite and placed in the position on the CT table. Procedures Rn CT was performed of the pelvis. After determining the appropriate site, the skin was infiltrated with lidocaine and a finder needle was placed. Intermittent CT was performed until the desired position was identified. The 25 gauge needle was inserted into the left fallopian tube. Aspiration was performed and sent to the lab for analysis. The collection was insufficient in size for percutaneous drain placement. Needle was removed. Sterile bandage was applied. The patient tolerated the procedure well. There were no immediate postprocedural complications. FINDINGS: 1. Initial CT demonstrates bilateral hydrosalpinx. There is a satisfactory window for CT drainage. 2. Intermittent CT demonstrates the 25 gauge needle was placed in the left hydrosalpinx. 3. Final CT documents no postoperative complication on CT. 4. A total of 7 mL of serosanguineous material was aspirated through the needle. IMPRESSION: Successful CT guided left hydrosalpinx aspiration.
--- NOTE | 2019-02-18 17:16 | Progress Note ---
Assessment and Plan Assessment and plan: Patient is a 33 yo woman who presented to [facility] ED with severe abd pains, vaginal discharge. She was found to have a temperature of 101.8F with a WBC of 14.6. General surgery was consulted to evaluate the appendix. CT abd/pelvis results not available at the time of this note but was reviewed by the Surgeon, Dr. Baugh, who has asked me to place a consult for production underwriter for bilateral hydrosalpinx. Pelvic exam was done in the ED but I do not see any cultures or smears done. Patient does have a history of gonorrhea, BV and genital HSV. UA not indicative of UTI, pCXR negative. -Suspected sepsis due to PID with suspected abscess: CT drainage done today, follow up cultures, ID following, production underwriter following -Hydrosalpinx: consulted manufacturing controller -Vaginal discharge, ?PID: manufacturing controller consulted,continue abx, add flagyl -Lost IV access: consult PICC nurse for midline History Interval history: Patient was seen and examined. Follow-up on current diagnosis of FEVERS. No overnight events reported to me. Patient denies any chest pain, shortness breath, nausea/vomiting or severe headaches. Imaging, nursing note, chart, labs and old chart reviewed. Discussed with patient. Hospitalist Physical - Physical exam Narrative exam: Gen: WDWN, NAD, Awake, Alert, Orientated HEENT: NCAT, EOMI, PERRL, OP Clear Neck: supple, no adenopathy, no thyromegaly, no JVD CVS/Heart: RRR, normal S1S2, pulses present bilaterally Chest/Lungs: CTA B, Symmetrical chest expansion, good air entry bilaterally GI/Abdomen: soft, NTND, good bowel sounds, no guarding or rebound /Bladder: +suprapubic tenderness, no CVA or paraspinal tenderness Extermity/Skin: no c/c/e, no obvious rash MSK: FROM x 4 Neuro: CN 2-12 grossly intact, no new focal deficits Psych: calm - Constitutional Vitals: Temp Pulse Resp BP Pulse Ox 98.6 F 86 16 111/75 100 02/18/19 12:05 02/18/19 12:05 02/18/19 12:05 02/18/19 12:05 02/18/19 12:05 General appearance: Present: no acute distress Results - Labs CBC & Chem 7: 02/18/19 03:18 02/18/19 03:18 Labs: Laboratory Last Values WBC 10.8 K/mm3 (4.5-11.0) 02/18/19 03:18 RBC 3.66 M/mm3 (3.65-5.03) 02/18/19 03:18 Hgb 11.3 gm/dl (10.1-14.3) 02/18/19 03:18 Hct 33.7 % (30.3-42.9) 02/18/19 03:18 MCV 92 fl (79-97) 02/18/19 03:18 MCH 31 pg (28-32) 02/18/19 03:18 MCHC 34 % (30-34) 02/18/19 03:18 RDW 13.4 % (13.2-15.2) 02/18/19 03:18 Plt Count 257 K/mm3 (140-440) 02/18/19 03:18 Add Manual Diff Complete 02/15/19 21:07 Total Counted 100 02/15/19 21:07 Seg Neutrophils % Kitchen Hand 02/15/19 21:07 Seg Neuts % (Manual) 87.0 % (40.0-70.0) H 02/15/19 21:07 0 % 02/15/19 21:07 4.0 % (13.4-35.0) L 02/15/19 21:07 Reactive Lymphs % (Man) 0 % 02/15/19 21:07 9.0 % (0.0-7.3) H 02/15/19 21:07 0 % (0.0-4.3) 02/15/19 21:07 0 % (0.0-1.8) 02/15/19 21:07 0 % 02/15/19 21:07 0 % 02/15/19 21:07 0 % 02/15/19 21:07 0 % 02/15/19 21:07 Nucleated RBC % Not Reportable 02/15/19 21:07 Seg Neutrophils # Man 12.7 K/mm3 (1.8-7.7) H 02/15/19 21:07 Band Neutrophils # 0.0 K/mm3 02/15/19 21:07 0.6 K/mm3 (1.2-5.4) L 02/15/19 21:07 Abs React Lymphs (Man) 0.0 K/mm3 02/15/19 21:07 1.3 K/mm3 (0.0-0.8) H 02/15/19 21:07 0.0 K/mm3 (0.0-0.4) 02/15/19 21:07 0.0 K/mm3 (0.0-0.1) 02/15/19 21:07 0.0 K/mm3 02/15/19 21:07 0.0 K/mm3 02/15/19 21:07 0.0 K/mm3 02/15/19 21:07 Blast Cells # 0.0 K/mm3 02/15/19 21:07 WBC Morphology Not Reportable 02/15/19 21:07 Hypersegmented Neuts Not Reportable 02/15/19 21:07 Hyposegmented Neuts Not Reportable 02/15/19 21:07 Hypogranular Neuts Not Reportable 02/15/19 21:07 Not Reportable 02/15/19 21:07 Not Reportable 02/15/19 21:07 Not Reportable 02/15/19 21:07 Not Reportable 02/15/19 21:07 Not Reportable 02/15/19 21:07 Not Reportable 02/15/19 21:07 Not Reportable 02/15/19 21:07 Not Reportable 02/15/19 21:07 Plt Clumps, EDTA Not Reportable 02/15/19 21:07 Not Reportable 02/15/19 21:07 Not Reportable 02/15/19 21:07 Not Reportable 02/15/19 21:07 Plt Morphology Comment Not Reportable 02/15/19 21:07 RBC Morphology Normal 02/15/19 21:07 Dimorphic RBCs Not Reportable 02/15/19 21:07 Not Reportable 02/15/19 21:07 Not Reportable 02/15/19 21:07 Not Reportable 02/15/19 21:07 Not Reportable 02/15/19 21:07 Not Reportable 02/15/19 21:07 Not Reportable 02/15/19 21:07 Not Reportable 02/15/19 21:07 Not Reportable 02/15/19 21:07 Not Reportable 02/15/19 21:07 Not Reportable 02/15/19 21:07 Not Reportable 02/15/19 21:07 Not Reportable 02/15/19 21:07 Not Reportable 02/15/19 21:07 Not Reportable 02/15/19 21:07 Not Reportable 02/15/19 21:07 Not Reportable 02/15/19 21:07 Not Reportable 02/15/19 21:07 Not Reportable 02/15/19 21:07 Not Reportable 02/15/19 21:07 Acanthocytes (Spur) Not Reportable 02/15/19 21:07 Rouleaux Not Reportable 02/15/19 21:07 Not Reportable 02/15/19 21:07 Not Reportable 02/15/19 21:07 Not Reportable 02/15/19 21:07 Not Reportable 02/15/19 21:07 Hem Pathologist Commnt No 02/15/19 21:07 PT 14.8 Sec. (12.2-14.9) 02/15/19 21:07 INR 1.19 (0.87-1.13) H 02/15/19 21:07 VBG pH 7.379 (7.320-7.420) 02/15/19 21:07 Sodium 136 mmol/L (137-145) L 02/18/19 03:18 Potassium 3.5 mmol/L (3.6-5.0) L 02/18/19 03:18 Chloride 103.4 mmol/L (98-107) 02/18/19 03:18 Carbon Dioxide 22 mmol/L (22-30) 02/18/19 03:18 14 mmol/L 02/18/19 03:18 BUN 2 mg/dL (7-17) L 02/18/19 03:18 0.6 mg/dL (0.7-1.2) L 02/18/19 03:18 Estimated GFR > 60 ml/min 02/18/19 03:18 3 % 02/18/19 03:18 Glucose 114 mg/dL (65-100) H 02/18/19 03:18 POC Glucose 149 (70-105) H 02/16/19 13:36 Lactic Acid 0.80 mmol/L (0.7-2.0) 02/16/19 00:24 Calcium 8.1 mg/dL (8.4-10.2) L 02/18/19 03:18 0.60 mg/dL (0.1-1.2) 02/15/19 21:07 AST 13 units/L (5-40) 02/15/19 21:07 ALT 8 units/L (7-56) 02/15/19 21:07 58 units/L (35-129) 02/15/19 21:07 7.0 g/dL (6.3-8.2) 02/15/19 21:07 3.9 g/dL (3.9-5) 02/15/19 21:07 1.3 % 02/15/19 21:07 9 units/L (13-60) L 02/15/19 21:07 HCG, Qual Negative (Negative) 02/15/19 21:07 Brown (Yellow) 02/15/19 21:39 Hazy (Clear) 02/15/19 21:39 6.0 (5.0-7.0) 02/15/19 21:39 Ur Specific [place] 1.015 (1.003-1.030) 02/15/19 21:39 30 mg/dl mg/dL (Negative) 02/15/19 21:39 Negative mg/dL (Negative) 02/15/19 21:39 Negative mg/dL (Negative) 02/15/19 21:39 Trace (Negative) 02/15/19 21:39 Negative (Negative) 02/15/19 21:39 Ur Reducing Substances Not Reportable 02/15/19 21:39 Negative (Negative) 02/15/19 21:39 Not Reportable 02/15/19 21:39 1.0 mg/dL (<2.0) 02/15/19 21:39 Ur Leukocyte Esterase Negative (Negative) 02/15/19 21:39 5.0 /HPF (0.0-6.0) 02/15/19 21:39 17.0 /HPF (0.0-6.0) 02/15/19 21:39 U Epithel Cells (Auto) 31.0 /HPF (0-13.0) H 02/15/19 21:39 2+ /HPF 02/15/19 21:39 1+ /HPF 02/15/19 21:39 1+ /HPF 02/15/19 21:39 RPR Nonreactive (Nonreactive) 02/17/19 14:57 HIV 1&2 Antibody Rapid Non react (Non React) 02/17/19 14:57 Non react (Non React) 02/17/19 14:57 Active Medications - Current Medications Current Medications: Generic Name Dose Route Start Last Admin Trade Name Freq PRN Reason Stop Dose Admin Acetaminophen 650 mg 02/16/19 02:51 02/17/19 22:45 Tylenol PO 650 mg Q4H PRN Administration Fever >101 Doxycycline Hyclate 100 mg/ 250 mls @ 250 mls/hr 02/17/19 12:30 02/18/19 14:36 Sodium Chloride IV 250 mls/hr Q12HR MARTA Administration Protocol Ceftriaxone Sodium 2 gm in 100 mls @ 200 mls/hr 02/17/19 13:00 02/18/19 12:13 Rocephin/Ns 2 Gm/100 Ml IV 200 mls/hr Q24HR [facility] Administration Protocol Metronidazole 500 mg in 100 mls @ 100 mls/hr 02/17/19 14:00 02/18/19 15:46 Flagyl 500 Mg/100 Ml IV 100 mls/hr Q8HR [facility] Administration Protocol Morphine Sulfate 2 mg 02/16/19 02:49 02/18/19 08:39 Morphine IV 2 mg Q3H PRN Administration Pain, Moderate (4-6) Ondansetron HCl 4 mg 02/16/19 02:49 Zofran IV Q8H PRN Nausea And Vomiting
[2019-02-19] MEDS: FLAGYL 500 MG/100 ML 500 MG/100 ML BAG IV SCH ×3 (05:47→23:12)
--- NOTE | 2019-02-19 08:53 | Progress Note ---
Assessment and Plan Cultures: 02/15/2019 blood culture:no growth 02/15/2019 Urine: no growth 02/18/2019 Abdominal culture: in progress A/P: 83-year-old female with previous history of pelvic inflammatory disease, on [place], bacterial vaginosis admitted with: 1) Sepsis secondary to pelvic inflammatory disease with hydrosalpinx: ?pyosalpinx likely given fever and leucocytosis. Transvaginal US shows complex bilateral cystic/tubular lesions in both adnexa most consistent with bilateral hydrosalpinx or pyosalpinx. s/p CT guided aspiration of 7ml of fluid from left fallopian tube 02/18/19. 2) Previous h/o STDs: HIV nonreactive. RPR non reactive. Follow-up GC NAAT testing. Recs: Follow-up GC NAAT testing Continue Ceftriaxone 2 gms IV every 24 hours, D3 Continue Flagyl 500mg IV every 8 hours, D3 Doxycycline 100 MG IV every 12 hours, D3 Follow up abdominal cultures Dr. Sandoval is internal controls consultant this weekend, . Please call for questions. [facility] M: [phone] O:[phone] Subjective Date of service: 02/19/19 Principal diagnosis: HD#3 PID possible pyosalpinx Interval history: Patient seen and examined. Reports improved abdominal pain. No generalized weakness. No fevers. Objective - Exam Narrative Exam: Constitutional: Alert, cooperative. No acute distress Head, Ears, Nose: Normocephalic, atraumatic. External ears, nose normal Eyes: Conjunctivae/corneas clear. No icterus. No ptosis. Neck: Supple, no meningeal signs Oral: no thrush Cardiovascular: S1, S2 normal. Respiratory: Good air entry, clear to auscultation bilaterally GI: Soft, tenderness in lower abdomen; bowel sounds normal. No peritoneal signs Musculoskeletal: No pedal edema, no cyanosis. Skin: No rash or abscess Hem/Lymphatic: No palpable cervical or supraclavicular nodes. No lymphangitis Psych: Mood ok. Affect normal Neurological: Awake, alert, oriented. No gross abnormality - Constitutional Vitals: Vital Signs Temp Pulse Resp BP Pulse Ox 98.9 F 89 12 108/69 100 02/19/19 07:49 02/19/19 04:07 02/19/19 07:49 02/19/19 07:49 02/19/19 04:07 Temperature -Last 24 Hours Temperature 98.9 F Temperature 98.3 F Temperature 99.2 F Temperature 99.0 F Temperature 98.4 F Temperature 98.6 F Temperature 98.9 F - Labs CBC & Chem 7: 02/18/19 03:18 02/18/19 03:18
[2019-02-19] MEDS: ROCEPHIN/NS 2 GM/100 ML 2 GM/100 ML BAG IV SCH (09:36)
[2019-02-19] MEDS: DOXYCYCLINE HYCLATE 100 MG in NACL 0.9% 250ML 250 ML IV SCH ×2 (10:07→21:55)
[2019-02-19] MEDS: MORPHINE IV PRN (10:12)
--- NOTE | 2019-02-19 14:51 | Progress Note ---
Assessment and Plan - Patient Problems (1) Hydrosalpinx Onset Date: ~02/16/19 Current Visit: Yes Status: Acute (2) Pelvic inflammatory disease (PID) Onset Date: ~02/16/19 Current Visit: Yes Status: Acute Plan to address problem: -cont' current antibx -d/c home on po meds once pelvic fluid cx resulted and if antibx recommended are adequate -f/u in office or [facility], [facility] upon d/c for f/u pelvic sono -await results of pelvic fluid culture -plan of care d/w pt and she agrees with plan of care. Subjective - Subjective Date of service: 02/19/19 Principal diagnosis: HD#5 PID s/p CT guided drainage of left fallopian tube Interval history: Pt states she is feeling much better and denies pain. I d/w out pt management given recommendation by ID for po Meds and she remains afebrile. I d/w the procedure she had and why the right tube was not drained. Again she expressed understanding. I d/w that we would a follow up sonogram after completion of her therapy. I advised that the culture from the fluid drained is still pending at this time. Pt inquired about having a week off from work as she states she still has some soreness at the incision site. Patient reports: appetite normal, voiding normally, pain well controlled Objective - Vital Signs Latest vital signs: Vital Signs Temp Pulse Pulse Resp Resp BP Pulse Ox 02/19/19 12:41 98.2 F 81 14 122/86 97 02/19/19 11:00 18 02/19/19 10:00 89 02/19/19 07:49 98.9 F 12 108/69 02/19/19 04:10 98.3 F 02/19/19 04:07 89 18 121/80 100 02/18/19 23:01 99.2 F 02/18/19 23:00 93 H 18 100 02/18/19 22:59 95 H 18 119/84 100 02/18/19 22:02 18 02/18/19 22:00 18 02/18/19 20:23 99.0 F 02/18/19 20:22 93 H 18 114/79 100 02/18/19 19:33 96 H 02/18/19 19:22 99 08/15/19 17:14 98.4 F 94 H 18 110/77 97 Intake and Output 02/18/19 02/19/19 02/19/19 22:59 06:59 14:59 Intake Total 1020 340 Output Total 1100 Balance -80 340 Intake: IV 600 100 Doxycycline Hyclate 100 500 mg In NaCl 0.9% 250Ml 250 ml @ 250 mls/hr IV Q12HR [facility] Rx#:[id number] FLAGYL 500 MG/100 ML 500 100 100 mg In 100 ml @ 100 mls/hr IV Q8HR [facility] Rx#: [id number] Oral 420 240 Output: Urine 1100 Void 1100 Other: Total, Intake Amount 420 240 Total, Output Amount 1100 Voiding Method Toilet Toilet # Voids Void 5 1 # Bowel Movements 2 - Exam Lungs: Present: Normal air movement Abdomen: Present: normal appearance, soft. Absent: distention, tenderness, guarding Extremities: Present: normal. Absent: tenderness, edema Incision: Present: normal, dry, intact
--- NOTE | 2019-02-19 17:20 | Progress Note ---
Assessment and Plan Assessment and plan: Patient is a 33 yo woman who presented to [facility] ED with severe abd pains, vaginal discharge. She was found to have a temperature of 101.8F with a WBC of 14.6. General surgery was consulted to evaluate the appendix. CT abd/pelvis results not available at the time of this note but was reviewed by the Surgeon, Dr. Baugh, who has asked me to place a consult for computer salesperson retail for bilateral hydrosalpinx. Pelvic exam was done in the ED but I do not see any cultures or smears done. Patient does have a history of gonorrhea, BV and genital HSV. UA not indicative of UTI, pCXR negative. -Suspected sepsis due to PID with suspected abscess: CT drainage done follow up cultures, ID following, computer salesperson retail following -Hydrosalpinx: consulted termite exterminator helper -Vaginal discharge, +PID: termite exterminator helper consulted,continue abx, add flagyl -Lost IV access: consult PICC nurse for midline History Interval history: Patient was seen and examined. Follow-up on current diagnosis of FEVERS. No overnight events reported to me. Patient denies any chest pain, shortness breath, nausea/vomiting or severe headaches. Imaging, nursing note, chart, labs and old chart reviewed. Discussed with patient. Hospitalist Physical - Physical exam Narrative exam: Gen: WDWN, NAD, Awake, Alert, Orientated HEENT: NCAT, EOMI, PERRL, OP Clear Neck: supple, no adenopathy, no thyromegaly, no JVD CVS/Heart: RRR, normal S1S2, pulses present bilaterally Chest/Lungs: CTA B, Symmetrical chest expansion, good air entry bilaterally GI/Abdomen: soft, NTND, good bowel sounds, no guarding or rebound /Bladder: +suprapubic tenderness, no CVA or paraspinal tenderness Extermity/Skin: no c/c/e, no obvious rash MSK: FROM x 4 Neuro: CN 2-12 grossly intact, no new focal deficits Psych: calm - Constitutional Vitals: Temp Pulse Resp BP Pulse Ox 98.2 F 81 14 122/86 97 02/19/19 12:41 02/19/19 12:41 02/19/19 12:41 02/19/19 12:41 02/19/19 12:41 General appearance: Present: no acute distress Results - Labs CBC & Chem 7: 02/18/19 03:18 02/18/19 03:18 Labs: Laboratory Last Values WBC 10.8 K/mm3 (4.5-11.0) 02/18/19 03:18 RBC 3.66 M/mm3 (3.65-5.03) 02/18/19 03:18 Hgb 11.3 gm/dl (10.1-14.3) 02/18/19 03:18 Hct 33.7 % (30.3-42.9) 02/18/19 03:18 MCV 92 fl (79-97) 02/18/19 03:18 MCH 31 pg (28-32) 02/18/19 03:18 MCHC 34 % (30-34) 02/18/19 03:18 RDW 13.4 % (13.2-15.2) 02/18/19 03:18 Plt Count 257 K/mm3 (140-440) 02/18/19 03:18 Add Manual Diff Complete 02/15/19 21:07 Total Counted 100 02/15/19 21:07 Seg Neutrophils % Accounts Payable Assistant 02/15/19 21:07 Seg Neuts % (Manual) 87.0 % (40.0-70.0) H 02/15/19 21:07 0 % 02/15/19 21:07 4.0 % (13.4-35.0) L 02/15/19 21:07 Reactive Lymphs % (Man) 0 % 02/15/19 21:07 9.0 % (0.0-7.3) H 02/15/19 21:07 0 % (0.0-4.3) 02/15/19 21:07 0 % (0.0-1.8) 02/15/19 21:07 0 % 02/15/19 21:07 0 % 02/15/19 21:07 0 % 02/15/19 21:07 0 % 02/15/19 21:07 Nucleated RBC % Not Reportable 02/15/19 21:07 Seg Neutrophils # Man 12.7 K/mm3 (1.8-7.7) H 02/15/19 21:07 Band Neutrophils # 0.0 K/mm3 02/15/19 21:07 0.6 K/mm3 (1.2-5.4) L 02/15/19 21:07 Abs React Lymphs (Man) 0.0 K/mm3 02/15/19 21:07 1.3 K/mm3 (0.0-0.8) H 02/15/19 21:07 0.0 K/mm3 (0.0-0.4) 02/15/19 21:07 0.0 K/mm3 (0.0-0.1) 02/15/19 21:07 0.0 K/mm3 02/15/19 21:07 0.0 K/mm3 02/15/19 21:07 0.0 K/mm3 02/15/19 21:07 Blast Cells # 0.0 K/mm3 02/15/19 21:07 WBC Morphology Not Reportable 02/15/19 21:07 Hypersegmented Neuts Not Reportable 02/15/19 21:07 Hyposegmented Neuts Not Reportable 02/15/19 21:07 Hypogranular Neuts Not Reportable 02/15/19 21:07 Not Reportable 02/15/19 21:07 Not Reportable 02/15/19 21:07 Not Reportable 02/15/19 21:07 Not Reportable 02/15/19 21:07 Not Reportable 02/15/19 21:07 Not Reportable 02/15/19 21:07 Not Reportable 02/15/19 21:07 Not Reportable 02/15/19 21:07 Plt Clumps, EDTA Not Reportable 02/15/19 21:07 Not Reportable 02/15/19 21:07 Not Reportable 02/15/19 21:07 Not Reportable 02/15/19 21:07 Plt Morphology Comment Not Reportable 02/15/19 21:07 RBC Morphology Normal 02/15/19 21:07 Dimorphic RBCs Not Reportable 02/15/19 21:07 Not Reportable 02/15/19 21:07 Not Reportable 02/15/19 21:07 Not Reportable 02/15/19 21:07 Not Reportable 02/15/19 21:07 Not Reportable 02/15/19 21:07 Not Reportable 02/15/19 21:07 Not Reportable 02/15/19 21:07 Not Reportable 02/15/19 21:07 Not Reportable 02/15/19 21:07 Not Reportable 02/15/19 21:07 Not Reportable 02/15/19 21:07 Not Reportable 02/15/19 21:07 Not Reportable 02/15/19 21:07 Not Reportable 02/15/19 21:07 Not Reportable 02/15/19 21:07 Not Reportable 02/15/19 21:07 Not Reportable 02/15/19 21:07 Not Reportable 02/15/19 21:07 Not Reportable 02/15/19 21:07 Acanthocytes (Spur) Not Reportable 02/15/19 21:07 Rouleaux Not Reportable 02/15/19 21:07 Not Reportable 02/15/19 21:07 Not Reportable 02/15/19 21:07 Not Reportable 02/15/19 21:07 Not Reportable 02/15/19 21:07 Hem Pathologist Commnt No 02/15/19 21:07 PT 14.8 Sec. (12.2-14.9) 02/15/19 21:07 INR 1.19 (0.87-1.13) H 02/15/19 21:07 VBG pH 7.379 (7.320-7.420) 02/15/19 21:07 Sodium 136 mmol/L (137-145) L 02/18/19 03:18 Potassium 3.5 mmol/L (3.6-5.0) L 02/18/19 03:18 Chloride 103.4 mmol/L (98-107) 02/18/19 03:18 Carbon Dioxide 22 mmol/L (22-30) 02/18/19 03:18 14 mmol/L 02/18/19 03:18 BUN 2 mg/dL (7-17) L 02/18/19 03:18 0.6 mg/dL (0.7-1.2) L 02/18/19 03:18 Estimated GFR > 60 ml/min 02/18/19 03:18 3 % 02/18/19 03:18 Glucose 114 mg/dL (65-100) H 02/18/19 03:18 POC Glucose 149 (70-105) H 02/16/19 13:36 Lactic Acid 0.80 mmol/L (0.7-2.0) 02/16/19 00:24 Calcium 8.1 mg/dL (8.4-10.2) L 02/18/19 03:18 0.60 mg/dL (0.1-1.2) 02/15/19 21:07 AST 13 units/L (5-40) 02/15/19 21:07 ALT 8 units/L (7-56) 02/15/19 21:07 58 units/L (35-129) 02/15/19 21:07 7.0 g/dL (6.3-8.2) 02/15/19 21:07 3.9 g/dL (3.9-5) 02/15/19 21:07 1.3 % 02/15/19 21:07 9 units/L (13-60) L 02/15/19 21:07 HCG, Qual Negative (Negative) 02/15/19 21:07 Brown (Yellow) 02/15/19 21:39 Hazy (Clear) 02/15/19 21:39 6.0 (5.0-7.0) 02/15/19 21:39 Ur Specific [place] 1.015 (1.003-1.030) 02/15/19 21:39 30 mg/dl mg/dL (Negative) 02/15/19 21:39 Negative mg/dL (Negative) 02/15/19 21:39 Negative mg/dL (Negative) 02/15/19 21:39 Trace (Negative) 02/15/19 21:39 Negative (Negative) 02/15/19 21:39 Ur Reducing Substances Not Reportable 02/15/19 21:39 Negative (Negative) 02/15/19 21:39 Not Reportable 02/15/19 21:39 1.0 mg/dL (<2.0) 02/15/19 21:39 Ur Leukocyte Esterase Negative (Negative) 02/15/19 21:39 5.0 /HPF (0.0-6.0) 02/15/19 21:39 17.0 /HPF (0.0-6.0) 02/15/19 21:39 U Epithel Cells (Auto) 31.0 /HPF (0-13.0) H 02/15/19 21:39 2+ /HPF 02/15/19 21:39 1+ /HPF 02/15/19 21:39 1+ /HPF 02/15/19 21:39 RPR Nonreactive (Nonreactive) 02/17/19 14:57 C.trachomatis DNA (SDA) TNR 02/16/19 15:30 HIV 1&2 Antibody Rapid Non react (Non React) 02/17/19 14:57 Non react (Non React) 02/17/19 14:57 N.gonorrhoeae DNA (SDA) TNR 02/16/19 15:30 Active Medications - Current Medications Current Medications: Generic Name Dose Route Start Last Admin Trade Name Freq PRN Reason Stop Dose Admin Acetaminophen 650 mg 02/16/19 02:51 02/17/19 22:45 Tylenol PO 650 mg Q4H PRN Administration Fever >101 Doxycycline Hyclate 100 mg/ 250 mls @ 250 mls/hr 02/17/19 12:30 02/19/19 10:07 Sodium Chloride IV 250 mls/hr Q12HR [facility] Administration Protocol Ceftriaxone Sodium 2 gm in 100 mls @ 200 mls/hr 02/17/19 13:00 02/19/19 09:36 Rocephin/Ns 2 Gm/100 Ml IV 200 mls/hr Q24HR [facility] Administration Protocol Metronidazole 500 mg in 100 mls @ 100 mls/hr 02/17/19 14:00 02/19/19 16:05 Flagyl 500 Mg/100 Ml IV 100 mls/hr Q8HR [facility] Administration Protocol Morphine Sulfate 2 mg 02/16/19 02:49 02/19/19 10:12 Morphine IV 2 mg Q3H PRN Administration Pain, Moderate (4-6) Ondansetron HCl 4 mg 02/16/19 02:49 02/19/19 00:37 Zofran IV 4 mg Q8H PRN Administration Nausea And Vomiting
[2019-02-20] MEDS: FLAGYL 500 MG/100 ML 500 MG/100 ML BAG IV SCH (05:39)
[2019-02-20 05:57] LABS: Hematocrit 32.9 % (30.3-42.9); Hemoglobin 11.1 gm/dl (10.1-14.3); Mean Corpuscular HGB Conc 34 % (30-34); Mean Corpuscular Volume 91 fl (79-97); Platelet Count 312 K/mm3 (140-440)
[2019-02-20 06:18] LABS: BUN/Creatinine Ratio 6; Blood Urea Nitrogen 3 mg/dL (7-17); Calcium 8.3 mg/dL (8.4-10.2); Hemolysis Index 5
[2019-02-20 06:32] VITALS: BP 130/87
[2019-02-20] MEDS: ROCEPHIN/NS 2 GM/100 ML 2 GM/100 ML BAG IV SCH (09:23)
[2019-02-20] MEDS: DOXYCYCLINE HYCLATE 100 MG in NACL 0.9% 250ML 250 ML IV SCH (09:24)
--- NOTE | 2019-02-20 10:13 | Discharge Summary ---
Providers - Providers Date of Admission: 02/16/19 02:46 Date of discharge: 02/20/19 Attending physician: FRANCIS LEARY 02/16/19 02:24 Consult to Physician [CONS] Stat Comment: Dr. Sears spoke with Dr. Esposito @ [id number] Consulting Provider: GRAYSON ESPOSITO Physician Instructions: Reason For Exam: enteritis, SIRS 02/16/19 09:43 Consult to Physician [CONS] Routine Comment: Consulting Provider: BELIA TAYLOR Physician Instructions: Reason For Exam: Hydrosalpinx, vaginal discharge, evaluate for PID 02/16/19 11:47 Consult to PICC Line RN [CONS] Urgent Reason For Exam: for abx Type Line:: Midline 02/16/19 20:12 Consult to Physician [CONS] Routine Comment: Consulting Provider: LINDA AGUIRRE Physician Instructions: Reason For Exam: PID 02/17/19 10:36 Consult to Physician [CONS] Routine Comment: Consulting Provider: RADHA BAL Physician Instructions: I notified Reason For Exam: PID abx management 02/17/19 14:44 Consult to Physician [CONS] Routine Comment: Consulting Provider: PEMA MARTINEZ Physician Instructions: Reason For Exam: CT guided drainge of pyosalpinx [facility] Condition: Stable Hospital course: Patient is a 33 yo woman who presented to [facility] ED with severe abd pains, vaginal discharge. She was found to have a temperature of 101.8F with a WBC of 14.6. General surgery was consulted to evaluate the appendix. CT abd/pelvis results showed bilateral hydrosalpinx. Pelvic exam was done in the ED but I do not see any cultures or smears done. Patient does have a history of gonorrhea, BV and genital HSV. UA not indicative of UTI, pCXR negative. Transvaginal US shows complex bilateral cystic/tubular lesions in both adnexa most consistent with bilateral hydrosalpinx or pyosalpinx; s/p CT guided aspiration of 7ml of fluid from left fallopian tube 02/18/19. Discharge Diagnoses: -Sepsis due to PID with suspected abscess/pyosalphinx: CT drainage done on 02/18/19, Abdominal cultures shows no growth at 48 hours, signs and symptoms much better; therefore, will discharge on ID's abx recommendation of PO Augmentin 875 mg BID + PO Doxycycline 100 mg BID x 14 days -Hydrosalpinx/pyosalphinx: consulted pool coordinator -Vaginal discharge, +PID: pool coordinator consulted,continue abx, add flagyl -Lost IV access: PICC nurse for midline -Previous h/o STDs: HIV nonreactive. RPR non reactive. Follow-up GC NAAT testing. Disposition: DC-01 TO HOME OR SELFCARE Time spent for discharge: 34 minutes Core Measure Documentation - Palliative Care Palliative Care/ Comfort Measures: Not Applicable - Core Measures Any of the following diagnoses?: none - VTE Discharge Requirements Deep Vein Thrombosis/Pulmonary Embolism Present on Admission: No Has pt received <5 days of overlap therapy or INR<2.0: No Anticoagulant overlap therapy prescribed at discharge: No Contraindication No Overlap Therapy order at DC: Not Indicated Exam - Physical Exam Narrative exam: Gen: WDWN, NAD, Awake, Alert, Orientated HEENT: NCAT, EOMI, PERRL, OP Clear Neck: supple, no adenopathy, no thyromegaly, no JVD CVS/Heart: RRR, normal S1S2, pulses present bilaterally Chest/Lungs: CTA B, Symmetrical chest expansion, good air entry bilaterally GI/Abdomen: soft, NTND, good bowel sounds, no guarding or rebound /Bladder: +much improved suprapubic tenderness, no CVA or paraspinal tenderness Extermity/Skin: no c/c/e, no obvious rash MSK: FROM x 4 Neuro: CN 2-12 grossly intact, no new focal deficits Psych: calm - Constitutional Vitals: Temp Pulse Resp BP Pulse Ox 99.0 F 88 18 130/87 99 02/20/19 06:27 02/20/19 06:27 02/20/19 06:27 02/20/19 06:27 02/20/19 06:27 Plan Activity: other (no strenous activity until cleared by radio maintainer) Diet: regular Additional Instructions: Follow up test with pool coordinator Follow up with: MIREYA OLIVO MD [Primary Care Provider] - 3-5 Days BELIA TAYLOR MD [Staff Physician] - 7 Days Prescriptions: Amoxicillin/Potassium Clav [Augmentin 875-125 Tablet] 1 each PO BID #28 tablet Doxycycline Monohydrate 100 mg PO BID #28 tablet Ibuprofen [Motrin 800 MG tab] 800 mg PO Q8HR PRN #9 tablet PRN Reason: Pain , Severe (7-10) Pantoprazole [Protonix TAB] 20 mg PO QDAY #14 tablet.
--- NOTE | 2019-02-20 10:36 | Event Note ---
Date: 02/20/19 Agree with d/c home. GC/CT not performed by [employer]. /partner/SO needs to be tested by his PCP or local HD. Will follow up of tubal fluid culture.
== END 2019-02-20 12:00 | disposition home or self-care (01) | DRG 854 ==
LOC: ED 20:38 → 4A 02-16 02:46 → 3A 02-19 22:38
PROVIDERS: ADMIT Internal Medicine; ATTEND Internal Medicine
PROC: 0U9 Female Reproductive System, Drainage (ICD-10-PCS; principal; 2019-02-18)
PROC: 05HY33Z Insertion of Infusion Device into Upper Vein, Percutaneous Approach (ICD-10-PCS; 2019-02-18)
DX: A41.9 Sepsis, unspecified organism (principal); N70.01 Acute salpingitis; N73.0 Acute parametritis and pelvic cellulitis; K52.9 Noninfective gastroenteritis and colitis, unspecified; F17.210 Nicotine dependence, cigarettes, uncomplicated; N76.0 Acute vaginitis; Z79.899 Other long term (current) drug therapy; Z72.89 Other problems related to lifestyle; N73.9 Female pelvic inflammatory disease, unspecified
CPT/HCPCS: 10160; 36415; 71045; 74177; 76830; 76856; 77012; 80048; 80053; 81001; 82140; 82805; 82962; 83690; 84703; 85007; 85025; 85027; 85610; 86592; 87040; 87086; 87116; 87591; 87806; 93005; 93010; 96365; 96367; G0378; J0456; J0696; J1956; J2250; J2270; J2405; J2543; J3010; J7030; J7050; Q9967